=== PATIENT | male | born 1975 | race African-American/Black ===

== ENCOUNTER → 2016-08-01 | Outpatient (CLI) | payer SELFPAY ==
[2012-07-25 07:48] VITALS: BP 142/96
[2016-08-01 11:25] LABS: CREATININE,URINE 310.99 mg/dL (40-278); MICROALBUMIN,URINE 14.4 mg/L
[2016-08-01 11:50] LABS: CHOL/HDL RATIO 3.2 (0.0-5.0)
== END ==
LOC: LAB 10:37
PROVIDERS: ATTEND Nurse Practitioner Family
DX: E11.9 Type 2 diabetes mellitus without complications (principal); E78.4 Other hyperlipidemia
CPT/HCPCS: 36415; 80061; 82043; 83036

== ENCOUNTER 2017-03-08 12:44 | Inpatient (IN) | payer SELFPAY ==
[2017-03-08] MEDS ORDERED: NS 1000 ML 1,000 ML ONE ×3 (12:55→15:03)
[2017-03-08] MEDS ORDERED: NS 1000 ML 1,000 ML IV ONE ×2 (13:07→13:58)
[2017-03-08 13:12] LABS: ABG BASE EXCESS -16.7 mmol/L (-2.0-2.0)
[2017-03-08 13:13] LABS: ABG ALLEN TEST POS; ABG HCO3 9.9 mmol/L (22-26)
--- NOTE | 2017-03-08 13:13 | DR.GENAD ---
HPI - PCP Primary Care Physician: ROXANA LUNDBERG - HPI Comment HPI Comment: DIABETIC PATIENT OUT OF INSULIN FOR 2 WEEKS. PATIENT IS NOT HOLDING DOWN FOOD OR FLUID. HE IS WEAK AND DIZZY. - Complaint/Symptoms Chief Complaint Doctors Comments: N/V AND ABDOMINAL PAIN TIMES SEVERAL DAYS. Chief Complaint:: PT. C/O N/V/D, DIZZINESS. PT. HAS BEEN OUT OF HIS INSULIN X 2 WEEKS. BLOOD SUGAR AT HOME HAS BEEN READING HOME. - Nurses notes reviewed Nurses Notes Review: Yes - Source History Provided: Patient, Family Member - Mode of Arrival Mode of Arrival: Wheelchair - Timing Onset of Chief Complaint: 02/22/17 Came on: Suddenly - Duration Duration: Constant Duration: Days PMH - PMH Past Medical History: Yes Past Medical History: Diabetes, Dyslipidemia Past Surgical History: No Surgical History: No History - Family History History of Family Medical Conditions: Yes Family Medical History: Diabetes Mellitus - Social History Does patient currently use any type of tobacco product: No Have you used tobacco products in the last 12 months: No Type of Tobacco Use: None Does any household member use tobacco: No Alcohol Use: None Do you use any recreational Drugs:: No Lives With: Spouse Lives Where: Home - infectious screening In the last 2 months have you had wt loss of >10#?: NO Have you had fever, night sweats or hemotysis?: No Have you traveled outside the country in the last 6 months?: No Isolation: Standard ROS - Review of Systems Constitutional: Weakness, Fatigue, Loss of Appetite. negative: Chills, Fever Eyes: Blurred Vision. negative: Eye Pain, Discharge ENTM: No Symptoms Reported. negative: Ear Pain, Nose Discharge, Nose Congestion , Throat Pain Respiratoy: Short of Breath. negative: Productive Cough, Wheezing, Hemoptysis Cardiovascular: Chest Pain Gastrointestinal/Abdominal: Abdominal Pain, Nausea, Vomiting Genitourinary: Other (DECREASE URINE OUTPUT.). negative: Dysuria, Frequency, Hematuria Neurological: Weakness, Dizziness Musculoskeletal: Muscle Pain Integumentary: Dryness Hematologic/Lymphatic: No Symptoms Reported Endocrine: Flushing, Increased Thirst All Other Systems: Reviewed and Negative PE - Vital Signs Vitals: Temperature 99 F Pulse Rate 124 Respiratory Rate 28 Blood Pressure 118/66 O2 Sat by Pulse Oximetry 96 - General Limitations: No Limitations General Appearance: Alert - Head Head Exam: Normal Inspection - Eyes Eye exam: Normal Appearance - ENT ENT Exam: Normal External Ear Exam External Ear Exam: Normal External Inspection TM/Canal Exam: Bilateral Normal Nose Exam: Normal Nose Exam Mouth Exam: Normal Inspection Throat Exam: Normal Inspection - Neck Neck Exam: Trachea Midline - Chest Chest Inspection: Symmetric Chest Wall Rise - Respiratory Respiratory Exam: Normal Lung Sounds Bilat Respiratory Exam: Bilateral Clear to Auscultation - Cardiovascular Cardiovascular Exam: Regular Rate, Normal Rhythm, Normal Heart Sounds - Abdominal Exam Abdominal Exam: Normal Bowel Sounds, Soft, Tenderness Abdominal Tenderness: Diffuse, Moderate - Extremities Extremities Exam: Normal Inspection - Back Back Exam: Normal Inspection - Neurologic Neurological Exam: Alert, Oriented X3 - Psychiatric Psychiatric Exam: Anxious - Skin Skin Exam: Erythema MDM - Additional Information Additional Information Obtained From: Family - Differential Diagnosis Differential Diagnosis: DKA, DIABETIC GASTROPARESIS, BOWEL OBSTRUCTION, HYPERGLYCEMIA Course - Treatment Treatment: SEE ORDERS. - Consultation Consultation Comments: DISCUSS PATIENT WITH DR. SANDERSON. HE WILL ADMIT PATIENT. - Education/Counseling Education/Counseling: Patient, Family, Education Educated On: Diagnosis ROR - Labs Reviewed Laboratory Results Reviewed?: Yes Result Diagrams: 03/09/17 05:50 03/09/17 05:50 - XRAY XRAY Interpreted by: Radiologist XRAY Findings: REPORT DISCUSS WITH PATIENT AND FAMILY. - EKG Rhythm: NSR (EKG NOTED.) - Diagnosis Discharge Problem: DKA (diabetic ketoacidoses) Qualifiers: Diabetes mellitus type: type 1 Diabetes mellitus complication detail: without coma Qualified Code(s): E10.10 - Type 1 diabetes mellitus with ketoacidosis without coma Abdominal pain Qualifiers: Abdominal location: generalized Qualified Code(s): R10.84 - Generalized abdominal pain - Discharge Plan Disposition: ADMITTED INPATIENT Condition: Stable - Follow ups/Referrals - Instructions
[2017-03-08 13:18] LABS: BASOPHILS # (AUTO) 0.1 X10^3/uL (0.0-0.1); BASOPHILS % (AUTO) 0.2 % (0.2-1.0); HEMOGLOBIN 16.4 g/dL (13.5-18.0); LYMPHOCYTES # (AUTO) 2.4 X10^3/uL (1.3-2.9); LYMPHOCYTES % (AUTO) 9.1 % (21.0-51.0); MEAN CORPUSCULAR HEMOGLOBIN 25.7 pg (27.0-34.0); MEAN CORPUSCULAR HGB CONC 31.5 g/dL (33.0-35.0); MEAN CORPUSCULAR VOLUME 81.6 fL (80.0-100.0); MEAN PLATELET VOLUME 9.6 fL (7.4-11.0); MONOCYTES # (AUTO) 1.1 x10^3/uL (0.3-0.8); MONOCYTES % (AUTO) 4.1 % (0.0-13.0); NEUTROPHILS # (AUTO) 22.4 x10^3/uL (2.2-4.8); NEUTROPHILS % (AUTO) 86.6 % (42.0-75.0); PLATELET COUNT 379 X10^3/uL (150.0-450.0); RED BLOOD COUNT 6.37 X10^6/uL (4.7-6.0); RED CELL DISTRIBUTION WIDTH 13.3 % (11.6-16.5); WHITE BLOOD COUNT 25.9 X10^3/uL (3.6-10.0)
[2017-03-08 13:25] LABS: SERUM ACETONE LARGE (NEGATIVE)
[2017-03-08 13:34] LABS: BLOOD UREA NITROGEN 33 mg/dL (7-18); CALCIUM 10.4 mg/dL (8.5-10.1); CHLORIDE 86 mmol/L (98-107); CREATININE 2.36 mg/dL (0.70-1.30); SODIUM 130 mmol/L (136-145); eGFR BLACK RACES 39 (>60); eGFR NON BLACK RACES 32 (>60)
[2017-03-08 13:35] LABS: ALANINE AMINOTRANSFERASE 23 Units/L (12-78); ALBUMIN 4.5 g/dL (3.4-5.0); ALKALINE PHOSPHATASE 180 Units/L (46-116); ASPARTATE AMINO TRANSFERASE 11 Units/L (15-37); TOTAL PROTEIN 9.2 g/dL (6.4-8.2)
[2017-03-08 13:48] LABS: BAND NEUTROPHILS % 7 % (0-10)
[2017-03-08 13:49] LABS: PLATELET MORPHOLOGY COMMENT NORMAL (NORMAL)
[2017-03-08 13:55] LABS: COR NA(FOR HYPERGLY) 144 mmol/L (136-145)
[2017-03-08 14:19] LABS: BILIRUBIN,URINE NEGATIVE (NEGATIVE); BLOOD/HEMOGLOBIN,URINE NEGATIVE (NEGATIVE); GLUCOSE, URINE 4+ (NEGATIVE); KETONES,URINE 3+ (NEGATIVE); LEUKOCYTE ESTERASE ,URINE NEGATIVE (NEGATIVE); NITRITES,URINE NEGATIVE (NEGATIVE); PROTEIN,URINE NEGATIVE (NEGATIVE); UROBILINOGEN,URINE NORMAL (NORMAL)
[2017-03-08 14:21] LABS: APPEARANCE,URINE CLEAR (CLEAR); COLOR,URINE YELLOW (YELLOW)
[2017-03-08 14:25] LABS: BACTERIA,URINE NEGATIVE /HPF (NEGATIVE); RBC,URINE NEGATIVE /HPF (NEGATIVE); SQUAMOUS EPITHELIAL CELL,UR RARE /HPF (NEGATIVE)
[2017-03-08] MEDS ORDERED: ZOFRAN INJ 4 MG VIAL IVP ONE (15:02)
[2017-03-08] MEDS ORDERED: ZOFRAN INJ 4 MG VIAL ONE (15:02)
[2017-03-08] MEDS ORDERED: HumuLIN R ONE ×3 (15:06→15:13)
[2017-03-08] MEDS ORDERED: HumuLIN R IV ONE (15:09)
[2017-03-08] MEDS ORDERED: NS 100 ML IV 100 ML IV ONE (15:11)
[2017-03-08] MEDS ORDERED: NS + KCL 20 MEQ/L 1,000 ML IV ONE (15:43)
--- NOTE | 2017-03-08 15:47 | RAD ---
Examination: Portable AP chest History: Weakness, AMS Findings: Normal heart size with clear lungs and pleural spaces. Impression: No acute or significant chest findings. Reported By:
[2017-03-08 15:49] LABS: HEMOGLOBIN A1C 10.6 % (4.5-6.2)
[2017-03-08] MEDS ORDERED: MAGNESIUM SULFATE 1 GM/100 mL PREMIX 2 GM/200 ML BAG IV PRN (16:01)
[2017-03-08] MEDS ORDERED: MAGNESIUM SULFATE 1 GM/100 mL PREMIX 1 GM/100 ML BAG IV PRN (16:01)
[2017-03-08] MEDS ORDERED: SODIUM BICARBONATE 8.4% INJ ADULT IVP PRN (16:01)
[2017-03-08] MEDS ORDERED: D50W ABBOJECT SYR IV PRN (16:01)
[2017-03-08] MEDS ORDERED: NS + KCL 40 MEQ/L 1,000 ML IV PRN (16:01)
[2017-03-08] MEDS ORDERED: NS 1000 ML 1,000 ML IV PRN (16:01)
[2017-03-08 16:22] LABS: CALCIUM 9.2 mg/dL (8.5-10.1)
[2017-03-08 16:32] LABS: MAGNESIUM 2.8 mg/dL (1.7-2.9); PHOSPHORUS 6.5 mg/dL (2.6-4.7)
[2017-03-08 17:36] VITALS: BMI 25.0
[2017-03-08 18:48] LABS: CALCIUM 9.3 mg/dL (8.5-10.1); CARBON DIOXIDE 20.9 mmol/L (21-32); CREATININE 2.05 mg/dL (0.70-1.30)
[2017-03-08] MEDS: ZOFRAN INJ 4 MG VIAL IVP PRN (20:00)
[2017-03-08] MEDS: SNACK - Diabetic Appropriate PO SCH (20:16)
[2017-03-08] MEDS ORDERED: LIPITOR TAB 10 MG PO SCH (21:00)
[2017-03-08] MEDS ORDERED: TOUJEO SOLOSTAR PEN SC SCH (21:00)
[2017-03-08] MEDS: D5 1/2 NS + KCL 20 MEQ/L 1,000 ML IV PRN (22:14)
[2017-03-08] MEDS: NS 1000 ML 1,000 ML IV SCH (23:14)
[2017-03-08] MEDS: HumuLIN R IV PRN (23:42)
[2017-03-09] MEDS: D5 1/2 NS + KCL 20 MEQ/L 1,000 ML IV PRN ×4 (04:20→23:27)
[2017-03-09] MEDS: HumuLIN R IV PRN (05:00)
[2017-03-09] MEDS: NS 1000 ML 1,000 ML IV SCH ×4 (05:43→19:05)
[2017-03-09 06:03] LABS: ABG BASE EXCESS -1.1 mmol/L (-2.0-2.0); ABG HCO3 22.2 mmol/L (22-26)
[2017-03-09 06:16] LABS: BASOPHILS # (AUTO) 0.1 X10^3/uL (0.0-0.1); BASOPHILS % (AUTO) 0.4 % (0.2-1.0); EOSINOPHILS % (AUTO) 0.1 % (0.9-2.9); HEMATOCRIT 40.9 % (42.0-54.0); HEMOGLOBIN 13.5 g/dL (13.5-18.0); LYMPHOCYTES # (AUTO) 1.9 X10^3/uL (1.3-2.9); LYMPHOCYTES % (AUTO) 11.2 % (21.0-51.0); MEAN CORPUSCULAR HEMOGLOBIN 25.3 pg (27.0-34.0); MEAN CORPUSCULAR HGB CONC 33.1 g/dL (33.0-35.0); MEAN CORPUSCULAR VOLUME 76.4 fL (80.0-100.0); MEAN PLATELET VOLUME 8.8 fL (7.4-11.0); MONOCYTES # (AUTO) 1.2 x10^3/uL (0.3-0.8); MONOCYTES % (AUTO) 7.3 % (0.0-13.0); NEUTROPHILS # (AUTO) 13.6 x10^3/uL (2.2-4.8); PLATELET COUNT 283 X10^3/uL (150.0-450.0); RED BLOOD COUNT 5.35 X10^6/uL (4.7-6.0); RED CELL DISTRIBUTION WIDTH 13.2 % (11.6-16.5); WHITE BLOOD COUNT 16.8 X10^3/uL (3.6-10.0)
[2017-03-09 06:47] LABS: HYPOCHROMASIA SLIGHT; MICROCYTOSIS SLIGHT; PLATELET MORPHOLOGY COMMENT NORMAL (NORMAL)
[2017-03-09 06:51] LABS: ALANINE AMINOTRANSFERASE 20 Units/L (12-78); ALKALINE PHOSPHATASE 94 Units/L (46-116); ASPARTATE AMINO TRANSFERASE 12 Units/L (15-37); BLOOD UREA NITROGEN 21 mg/dL (7-18); CALCIUM 7.8 mg/dL (8.5-10.1); CARBON DIOXIDE 23.7 mmol/L (21-32); CHLORIDE 113 mmol/L (98-107); COR CA(FOR HYPOALB) 8.6 mg/dL (8.5-10.1); COR NA(FOR HYPERGLY) 148 mmol/L (136-145); CREATININE 1.17 mg/dL (0.70-1.30); SODIUM 146 mmol/L (136-145); TOTAL PROTEIN 6.2 g/dL (6.4-8.2); eGFR BLACK RACES > 60 (>60); eGFR NON BLACK RACES > 60 (>60)
[2017-03-09] MEDS ORDERED: MILK OF MAGNESIA PO PRN (07:30)
[2017-03-09] MEDS: COLACE CAP 100 MG PO SCH ×2 (10:25→20:47)
[2017-03-09] MEDS: GLUCOPHAGE XR PO SCH ×2 (10:43→20:47)
[2017-03-09] MEDS: ACTOS PO SCH (10:44)
[2017-03-09] MEDS: ZESTRIL TAB 10 MG PO SCH (10:45)
[2017-03-09] MEDS ORDERED: CHLORASEPTIC SPRAY MT PRN (14:19)
[2017-03-09] MEDS ORDERED: NORCO 5/325 MG TAB PO PRN (16:18)
[2017-03-09] MEDS: TYLENOL 325 MG TAB PO PRN (17:14)
[2017-03-09] MEDS: SNACK - Diabetic Appropriate PO SCH (20:38)
[2017-03-09] MEDS: HumuLIN R SUBCUT PRN (20:47)
[2017-03-09] MEDS: TOUJEO SOLOSTAR PEN SC SCH (20:47)
[2017-03-10] MEDS: NS 1000 ML 1,000 ML IV SCH ×4 (01:01→17:10)
[2017-03-10] MEDS: HumuLIN R SUBCUT PRN ×2 (05:50→20:44)
[2017-03-10 06:18] LABS: BASOPHILS # (AUTO) 0.1 X10^3/uL (0.0-0.1); BASOPHILS % (AUTO) 0.5 % (0.2-1.0); EOSINOPHILS # (AUTO) 0.1 x10^3/uL (0.0-0.2); EOSINOPHILS % (AUTO) 0.8 % (0.9-2.9); HEMATOCRIT 40.4 % (42.0-54.0); HEMOGLOBIN 13.6 g/dL (13.5-18.0); LYMPHOCYTES # (AUTO) 1.9 X10^3/uL (1.3-2.9); LYMPHOCYTES % (AUTO) 14.2 % (21.0-51.0); MEAN CORPUSCULAR HEMOGLOBIN 25.8 pg (27.0-34.0); MEAN CORPUSCULAR HGB CONC 33.8 g/dL (33.0-35.0); MEAN CORPUSCULAR VOLUME 76.3 fL (80.0-100.0); MEAN PLATELET VOLUME 9.2 fL (7.4-11.0); MONOCYTES # (AUTO) 1.2 x10^3/uL (0.3-0.8); MONOCYTES % (AUTO) 8.6 % (0.0-13.0); NEUTROPHILS # (AUTO) 10.1 x10^3/uL (2.2-4.8); NEUTROPHILS % (AUTO) 75.9 % (42.0-75.0); PLATELET COUNT 240 X10^3/uL (150.0-450.0); RED BLOOD COUNT 5.29 X10^6/uL (4.7-6.0); RED CELL DISTRIBUTION WIDTH 12.8 % (11.6-16.5); WHITE BLOOD COUNT 13.4 X10^3/uL (3.6-10.0)
[2017-03-10 06:23] LABS: ABG BASE EXCESS -0.4 mmol/L (-2.0-2.0); ABG HCO3 21.8 mmol/L (22-26)
[2017-03-10 06:56] LABS: ALANINE AMINOTRANSFERASE 22 Units/L (12-78); ALBUMIN 2.8 g/dL (3.4-5.0); ALKALINE PHOSPHATASE 103 Units/L (46-116); ASPARTATE AMINO TRANSFERASE 20 Units/L (15-37); BLOOD UREA NITROGEN 9 mg/dL (7-18); CALCIUM 7.2 mg/dL (8.5-10.1); CARBON DIOXIDE 23.2 mmol/L (21-32); CHLORIDE 106 mmol/L (98-107); COR CA(FOR HYPOALB) 8.2 mg/dL (8.5-10.1); COR NA(FOR HYPERGLY) 142 mmol/L (136-145); CREATININE 1.02 mg/dL (0.70-1.30); MAGNESIUM 1.7 mg/dL (1.7-2.9); PHOSPHORUS 1.4 mg/dL (2.6-4.7); SODIUM 138 mmol/L (136-145); TOTAL PROTEIN 6.1 g/dL (6.4-8.2); eGFR BLACK RACES > 60 (>60); eGFR NON BLACK RACES > 60 (>60)
[2017-03-10 07:18] LABS: PLATELET MORPHOLOGY COMMENT NORMAL (NORMAL)
[2017-03-10] MEDS: GLUCOPHAGE XR PO SCH ×2 (10:18→20:43)
[2017-03-10] MEDS: ACTOS PO SCH (10:19)
[2017-03-10] MEDS: ZESTRIL TAB 10 MG PO SCH (10:19)
[2017-03-10] MEDS: LEVAQUIN TAB 500 MG PO SCH (10:22)
[2017-03-10] MEDS: FLONASE NASAL SPRAY ENOSTRIL SCH (10:23)
[2017-03-10] MEDS: TYLENOL 325 MG TAB PO PRN (10:24)
--- NOTE | 2017-03-10 10:43 | CT ---
Examination: CT of the sinuses. Clinical history: Frontal headache. Technique: Multiple axial images were obtained to evaluate the sinuses. Coronal reformatted images we re obtained. Dose reduction techniques including automated exposure control (AEC) and adjustment of m A and kV were utilized. Comparison: None available. Findings: There is patchy opacification of the ethmoid air cells seen bilaterally, with mild mucosal thickening noted in the maxillary sinuses bilaterally and minimal mucosal thickening seen in the left frontal s inus and the left sphenoid sinus, consistent with inflammatory sinus disease. The remainder of the pa ranasal sinuses are clear. The nasal septum is minimally deviated to the left. The ostiomeatal units are patent bilaterally. A leslye bullosa is incidentally noted, associated with the right middle turbinate. Soft tissue is noted in the external auditory canals bilaterally, consistent with cerumen impaction. No additional bony or soft tissue abnormality is noted. Impression: 1. Inflammatory sinus disease, as described above. 2. Soft tissue is noted in the external auditory canals bilaterally, consistent with cerumen impactio n. Reported By:
[2017-03-10] MEDS: ZOFRAN INJ 4 MG VIAL IVP PRN (13:07)
[2017-03-10] MEDS: SNACK - Diabetic Appropriate PO SCH (20:27)
[2017-03-10] MEDS: COLACE CAP 100 MG PO SCH (20:43)
[2017-03-10] MEDS: TOUJEO SOLOSTAR PEN SC SCH (20:45)
[2017-03-11] MEDS: NS 1000 ML 1,000 ML IV SCH ×2 (01:05→08:10)
[2017-03-11 05:01] LABS: ABG ALLEN TEST POS; ABG BASE EXCESS 2.5 mmol/L (-2.0-2.0); ABG HCO3 26.3 mmol/L (22-26)
[2017-03-11 06:30] LABS: BASOPHILS # (AUTO) 0.1 X10^3/uL (0.0-0.1); BASOPHILS % (AUTO) 0.8 % (0.2-1.0); EOSINOPHILS # (AUTO) 0.1 x10^3/uL (0.0-0.2); EOSINOPHILS % (AUTO) 0.5 % (0.9-2.9); HEMATOCRIT 37.7 % (42.0-54.0); LYMPHOCYTES # (AUTO) 2.1 X10^3/uL (1.3-2.9); LYMPHOCYTES % (AUTO) 22.1 % (21.0-51.0); MEAN CORPUSCULAR HEMOGLOBIN 25.9 pg (27.0-34.0); MEAN CORPUSCULAR HGB CONC 34.4 g/dL (33.0-35.0); MEAN CORPUSCULAR VOLUME 75.2 fL (80.0-100.0); MEAN PLATELET VOLUME 9.3 fL (7.4-11.0); MONOCYTES # (AUTO) 0.7 x10^3/uL (0.3-0.8); MONOCYTES % (AUTO) 7.3 % (0.0-13.0); NEUTROPHILS # (AUTO) 6.5 x10^3/uL (2.2-4.8); NEUTROPHILS % (AUTO) 69.3 % (42.0-75.0); PLATELET COUNT 177 X10^3/uL (150.0-450.0); RED BLOOD COUNT 5.01 X10^6/uL (4.7-6.0); WHITE BLOOD COUNT 9.4 X10^3/uL (3.6-10.0)
[2017-03-11 06:41] LABS: ALANINE AMINOTRANSFERASE 20 Units/L (12-78); ALBUMIN 2.4 g/dL (3.4-5.0); ALKALINE PHOSPHATASE 83 Units/L (46-116); ASPARTATE AMINO TRANSFERASE 15 Units/L (15-37); BLOOD UREA NITROGEN 7 mg/dL (7-18); CALCIUM 7.1 mg/dL (8.5-10.1); CARBON DIOXIDE 24.6 mmol/L (21-32); CHLORIDE 110 mmol/L (98-107); COR CA(FOR HYPOALB) 8.4 mg/dL (8.5-10.1); CREATININE 1.05 mg/dL (0.70-1.30); SODIUM 143 mmol/L (136-145); TOTAL PROTEIN 5.5 g/dL (6.4-8.2); eGFR BLACK RACES > 60 (>60); eGFR NON BLACK RACES > 60 (>60)
[2017-03-11 07:03] LABS: PLATELET MORPHOLOGY COMMENT NORMAL (NORMAL)
[2017-03-11] MEDS: ZESTRIL TAB 10 MG PO SCH (08:11)
[2017-03-11] MEDS: FLONASE NASAL SPRAY ENOSTRIL SCH (08:11)
[2017-03-11] MEDS: LEVAQUIN TAB 500 MG PO SCH (08:11)
[2017-03-11] MEDS: ACTOS PO SCH (08:11)
[2017-03-11] MEDS: GLUCOPHAGE XR PO SCH (08:12)
[2017-03-11] MEDS ORDERED: K-DUR TAB 20 MEQ PO ONE (10:00)
[2017-03-11] MEDS: TYLENOL 325 MG TAB PO PRN (11:58)
[2017-03-11 12:09] VITALS: BP 153/89
== END 2017-03-11 15:45 | disposition home or self-care (01) | DRG 639 ==
LOC: ER 12:51 → ICU 16:17
PROVIDERS: ADMIT Obstetrics & Gynecology Obstetrics; ATTEND Obstetrics & Gynecology Obstetrics
DX: E11.10 Type 2 diabetes mellitus with ketoacidosis without coma (principal); R10.84 Generalized abdominal pain; R11.2 Nausea with vomiting, unspecified; R42 Dizziness and giddiness; E78.2 Mixed hyperlipidemia; R51 Headache; R94.31 Abnormal electrocardiogram [ECG] [EKG]; E87.6 Hypokalemia; E83.42 Hypomagnesemia; J01.80 Other acute sinusitis
CPT/HCPCS: 36415; 36600; 70486; 71045; 80048; 80053; 81001; 81002; 82009; 82150; 82310; 82803; 82947; 83036; 83690; 83735; 84100; 84681; 85025; 86140; 87040; 93005; 93010; 96365; 96367; 96374; 96375; 99284; 99285; A4222; J1815; J2405

== ENCOUNTER → 2017-03-27 | Outpatient (CLI) | payer SELFPAY ==
[2017-03-11 12:09] VITALS: BP 153/89
[2017-03-27 09:00] LABS: BASOPHILS # (AUTO) 0.1 X10^3/uL (0.0-0.1); BASOPHILS % (AUTO) 0.8 % (0.2-1.0); EOSINOPHILS # (AUTO) 0.1 x10^3/uL (0.0-0.2); EOSINOPHILS % (AUTO) 0.9 % (0.9-2.9); HEMATOCRIT 43.5 % (42.0-54.0); HEMOGLOBIN 14.6 g/dL (13.5-18.0); LYMPHOCYTES # (AUTO) 2.5 X10^3/uL (1.3-2.9); LYMPHOCYTES % (AUTO) 38.6 % (21.0-51.0); MEAN CORPUSCULAR HEMOGLOBIN 25.7 pg (27.0-34.0); MEAN CORPUSCULAR HGB CONC 33.5 g/dL (33.0-35.0); MEAN CORPUSCULAR VOLUME 76.6 fL (80.0-100.0); MONOCYTES # (AUTO) 0.6 x10^3/uL (0.3-0.8); MONOCYTES % (AUTO) 8.8 % (0.0-13.0); NEUTROPHILS # (AUTO) 3.2 x10^3/uL (2.2-4.8); NEUTROPHILS % (AUTO) 50.9 % (42.0-75.0); PLATELET COUNT 260 X10^3/uL (150.0-450.0); RED BLOOD COUNT 5.68 X10^6/uL (4.7-6.0); RED CELL DISTRIBUTION WIDTH 12.9 % (11.6-16.5); WHITE BLOOD COUNT 6.3 X10^3/uL (3.6-10.0)
[2017-03-27 09:08] LABS: HEMOGLOBIN A1C 11.5 %
[2017-03-27 09:10] LABS: ALANINE AMINOTRANSFERASE 36 Units/L (12-78); ALBUMIN 3.8 g/dL (3.4-5.0); ALKALINE PHOSPHATASE 155 Units/L (46-116); ASPARTATE AMINO TRANSFERASE 22 Units/L (15-37); BLOOD UREA NITROGEN 14 mg/dL (7-18); CALCIUM 8.5 mg/dL (8.5-10.1); CARBON DIOXIDE 31.4 mmol/L (21-32); CHLORIDE 98 mmol/L (98-107); CHOL/HDL RATIO 3.5 (0.0-5.0); CHOLESTEROL 197 mg/dL (0-200); COR NA(FOR HYPERGLY) 141 mmol/L (136-145); CREATININE 1.18 mg/dL (0.70-1.30); HDL CHOLESTEROL 57 mg/dL (40-60); MAGNESIUM 1.9 mg/dL (1.7-2.9); SODIUM 136 mmol/L (136-145); TOTAL PROTEIN 7.8 g/dL (6.4-8.2); TRIGLYCERIDES 74 mg/dL (0-150); eGFR BLACK RACES > 60 (>60); eGFR NON BLACK RACES > 60 (>60)
[2017-03-27 09:33] LABS: PLATELET MORPHOLOGY COMMENT NORMAL (NORMAL)
[2017-03-27 09:39] LABS: CREATININE,URINE 124.91 mg/dL (40-278); MICROALBUMIN,URINE 21.8 mg/L
== END ==
LOC: LAB 08:27
PROVIDERS: ATTEND Psychiatry & Neurology Neurology
DX: E83.42 Hypomagnesemia (principal); E11.9 Type 2 diabetes mellitus without complications; E78.4 Other hyperlipidemia
CPT/HCPCS: 36415; 80053; 80061; 82043; 83036; 83735; 85025

== ENCOUNTER 2022-12-19 19:37 | Inpatient (IN) ==
--- NOTE | 2022-12-19 21:45 | DR.CP ---
HPI Time Seen Time Seen by Provider: 12/19/22 21:41 PCP Primary Care Physician: Mervin Complaint Chief Complaint:: c/o cough x1 week - now having some back/chest pain Self Treatment fo Chief Complaint: OTC cough meds Source History Provided: Patient Mode of Arrival Mode of Arrival: Ambulatory Timing Onset of Chief Complaint: 12/12/22 PMH PMH Past Medical History: Yes Past Medical History: Diabetes and Dyslipidemia Past Surgical History: Yes Surgical History: Other Past Surgical History Comment: Hernia repair Family History History of Family Medical Conditions: Yes Family Medical History: Diabetes Mellitus Social History Alcohol Use: None Do you use any recreational Drugs:: No Lives With: Spouse Lives Where: Home Infectious screening Have you traveled outside the country in the last 6 months?: No Isolation: Standard PE Vitals Vitals: Vital Signs Temperature 100.2 F Pulse Rate 102 Pulse Rate 104 Pulse Rate 103 Pulse Rate 120 Pulse Rate 101 Pulse Rate 105 Pulse Rate 109 Pulse Rate 118 Pulse Rate 108 Pulse Rate 109 Pulse Rate 118 Pulse Rate 124 Pulse Rate 120 Respiratory Rate 23 Respiratory Rate 29 Respiratory Rate 20 Respiratory Rate 48 Respiratory Rate 23 Respiratory Rate 27 Respiratory Rate 27 Respiratory Rate 30 Respiratory Rate 48 Respiratory Rate 31 Respiratory Rate 28 Respiratory Rate 47 Respiratory Rate 48 Respiratory Rate 22 Blood Pressure 174/84 Blood Pressure 162/76 Blood Pressure 153/77 Blood Pressure 172/95 Blood Pressure 181/105 Blood Pressure 172/98 O2 Sat by Pulse Oximetry 96 O2 Sat by Pulse Oximetry 97 O2 Sat by Pulse Oximetry 96 O2 Sat by Pulse Oximetry 96 O2 Sat by Pulse Oximetry 95 O2 Sat by Pulse Oximetry 92 O2 Sat by Pulse Oximetry 96 O2 Sat by Pulse Oximetry 97 O2 Sat by Pulse Oximetry 96 O2 Sat by Pulse Oximetry 96 ROR Labs Reviewed 12/19/22 21:55 12/19/22 21:55 Laboratory: WBC 18.6 X10^3/uL (3.6-10.0) H 12/19/22 21:55 RBC 5.70 X10^6/uL (4.7-6.0) 12/19/22 21:55 Hgb 14.6 g/dL (13.5-18.0) 12/19/22 21:55 Hct 44.4 % (42.0-54.0) 12/19/22 21:55 MCV 77.9 fL (80.0-100.0) L 12/19/22 21:55 MCH 25.6 pg (27.0-34.0) L 12/19/22 21:55 MCHC 32.8 g/dL (33.0-35.0) L 12/19/22 21:55 RDW 13.2 % (11.6-16.5) 12/19/22 21:55 Plt Count 547 X10^3/uL (150.0-450.0) H 12/19/22 21:55 MPV 7.1 fL (7.4-11.0) L 12/19/22 21:55 Neut % (Auto) 86.3 % (42.0-75.0) H 12/19/22 21:55 Lymph % (Auto) 6.3 % (21.0-51.0) L 12/19/22 21:55 [place] % (Auto) 6.6 % (0.0-13.0) 12/19/22 21:55 Eos % (Auto) 0.2 % (0.9-2.9) L 12/19/22 21:55 Baso % (Auto) 0.6 % (0.2-1.0) 12/19/22 21:55 Neut # (Auto) 16.0 x10^3/uL (2.2-4.8) H 12/19/22 21:55 Lymph # (Auto) 1.2 X10^3/uL (1.3-2.9) L 12/19/22 21:55 [place] # (Auto) 1.2 x10^3/uL (0.3-0.8) H 12/19/22 21:55 Eos # (Auto) 0.0 x10^3/uL (0.0-0.2) 12/19/22 21:55 Baso # (Auto) 0.1 X10^3/uL (0.0-0.1) 12/19/22 21:55 Absolute Nucleated RBC 0.0 /100WBC 12/19/22 21:55 Sample Site Rr 12/19/22 23: ABG pH 7.500 (7.35-7.45) H 12/19/22 23:29 ABG pCO2 36.0 mmHg (35.0-45.0) 12/19/22 23:29 ABG pO2 67.0 mmHg (80.0-100.0) L 12/19/22 23:29 ABG HCO3 28.1 mmol/L (22-26) H 12/19/22 23:29 ABG O2 Saturation 95.0 % (90-100) 12/19/22 23:29 ABG Base Excess 4.8 mmol/L (-2.0-2.0) H 12/19/22 23:29 Johnathan Test Pos 12/19/22 23: A-a Gradient 38.0 mmHg 12/19/22 23:29 FiO2 21.0 12/19/22 23:29 Blood Gas Comments Giacomo well sw 12/19/22 23:29 Sodium 134 mmol/L (136-145) L 12/19/22 21:55 Corrected Sodium 138 mmol/L (136-145) 12/19/22 21:55 Potassium 3.7 mmol/L (3.5-5.1) 12/19/22 21:55 Chloride 97 mmol/L (98-107) L 12/19/22 21:55 Carbon Dioxide 25.2 mmol/L (21-32) 12/19/22 21:55 BUN 13 mg/dL (7-18) 12/19/22 21:55 Creatinine 1.37 mg/dL (0.70-1.30) H 12/19/22 21:55 Est GFR (MDRD) Af Amer > 60 (>60) 12/19/22 21:55 Est GFR (MDRD) Non-Af 59 (>60) 12/19/22 21:55 Glucose 260 mg/dL (65-99) H 12/19/22 21:55 Lactic Acid 1.6 mmol/L (0.4-2.0) 12/19/22 23:45 Calcium 8.9 mg/dL (8.5-10.1) 12/19/22 21:55 Corrected Calcium 9.9 mg/dL (8.5-10.1) 12/19/22 21:55 Total Bilirubin 0.40 mg/dL (0.2-1.0) 12/19/22 21:55 AST 11 Units/L (15-37) L 12/19/22 21:55 ALT 18 Units/L (12-78) 12/19/22 21:55 Alkaline Phosphatase 162 Units/L (46-116) H 12/19/22 21:55 Creatine Kinase 76 Units/L (39-308) 12/19/22 21:55 Troponin I High Sens 4.1 ng/L (4.0-60.0) 12/19/22 21:55 Total Protein 8.5 g/dL (6.4-8.2) H 12/19/22 21:55 Albumin 2.8 g/dL (3.4-5.0) L 12/19/22 21:55 Globulin 5.7 g/dL (2.5-4.5) H 12/19/22 21:55 Albumin/Globulin Ratio 0.5 Ratio (1.1-2.1) L 12/19/22 21:55 Specimen Type Clean catch urine 12/19/22 21:55 Urine Color Yellow (YELLOW) 12/19/22 21:55 Urine Appearance Clear (CLEAR) 12/19/22 21:55 Urine pH 5.0 (5.0 - 8.0) 12/19/22 21:55 Ur Specific [place] 1.005 (1.000-1.030) 12/19/22 21:55 Urine Protein 2+ (NEGATIVE) 12/19/22 21:55 Urine Glucose (UA) 4+ (NEGATIVE) 12/19/22 21:55 Urine Ketones 3+ (NEGATIVE) 12/19/22 21:55 Urine Blood 1+ (NEGATIVE) 12/19/22 21:55 Urine Nitrite Negative (NEGATIVE) 12/19/22 21:55 Urine Bilirubin Negative (NEGATIVE) 12/19/22 21:55 Urine Urobilinogen Normal (NORMAL) 12/19/22 21:55 Ur Leukocyte Esterase Negative (NEGATIVE) 12/19/22 21:55 Urine RBC 0-2 /HPF (0-3) 12/19/22 21:55 Urine WBC None seen /HPF (0-5) 12/19/22 21:55 Ur Squamous Epith Cells Rare /HPF (NEGATIVE) 12/19/22 21:55 Urine Bacteria Negative /HPF (NEGATIVE) 12/19/22 21:55 Urine Mucus Few /HPF (NEGATIVE) 12/19/22 21:55 Ur Culture Indicated? No/not indicated 12/19/22 21:55 Acetone, Semi-Quant Small (NEGATIVE) H 12/19/22 21:55 SARS-CoV-2 (PCR) Negative (NEGATIVE) 12/19/22 21:59 Influenza Type A (PCR) Negative (NEGATIVE) 12/19/22 21:59 Influenza Type B (PCR) Negative (NEGATIVE) 12/19/22 21:59 RSV (PCR) Negative (NEGATIVE) 12/19/22 21:59 Opioid Opioid Risk Tool Total: 0 Total Score Risk Category: Low Risk Copyright: Stanley predicting aberrant behaviors Discharge Plan Diagnosis Discharge Problem: Pneumonia, Hyperglycemia, Generalized weakness Discharge Plan Patient Disposition: 01 HOME, SELF-CARE Condition: Stable Orders to Discharge Patient Discharge Orders: Transfer (Routine); Ordered 12/20/22 Ordered By: BARBARA SOSA
[2022-12-19 22:05] LABS: BASOPHILS # (AUTO) 0.1 X10^3/uL (0.0-0.1); BASOPHILS % (AUTO) 0.6 % (0.2-1.0); EOSINOPHILS % (AUTO) 0.2 % (0.9-2.9); HEMATOCRIT 44.4 % (42.0-54.0); HEMOGLOBIN 14.6 g/dL (13.5-18.0); LYMPHOCYTES # (AUTO) 1.2 X10^3/uL (1.3-2.9); LYMPHOCYTES % (AUTO) 6.3 % (21.0-51.0); MEAN CORPUSCULAR HEMOGLOBIN 25.6 pg (27.0-34.0); MEAN CORPUSCULAR HGB CONC 32.8 g/dL (33.0-35.0); MEAN CORPUSCULAR VOLUME 77.9 fL (80.0-100.0); MEAN PLATELET VOLUME 7.1 fL (7.4-11.0); MONOCYTES # (AUTO) 1.2 x10^3/uL (0.3-0.8); MONOCYTES % (AUTO) 6.6 % (0.0-13.0); NEUTROPHILS % (AUTO) 86.3 % (42.0-75.0); PLATELET COUNT 547 X10^3/uL (150.0-450.0); RED CELL DISTRIBUTION WIDTH 13.2 % (11.6-16.5); WHITE BLOOD COUNT 18.6 X10^3/uL (3.6-10.0)
[2022-12-19 22:06] LABS: BILIRUBIN,URINE NEGATIVE (NEGATIVE); BLOOD/HEMOGLOBIN,URINE 1+ (NEGATIVE); GLUCOSE, URINE 4+ (NEGATIVE); KETONES,URINE 3+ (NEGATIVE); LEUKOCYTE ESTERASE ,URINE NEGATIVE (NEGATIVE); NITRITES,URINE NEGATIVE (NEGATIVE); PROTEIN,URINE 2+ (NEGATIVE); UROBILINOGEN,URINE NORMAL (NORMAL)
[2022-12-19 22:14] LABS: APPEARANCE,URINE CLEAR (CLEAR); COLOR,URINE YELLOW (YELLOW)
[2022-12-19 22:15] LABS: BACTERIA,URINE NEGATIVE /HPF (NEGATIVE); RBC,URINE 0-2 /HPF (0-3); SQUAMOUS EPITHELIAL CELL,UR RARE /HPF (NEGATIVE)
[2022-12-19 22:19] LABS: ALANINE AMINOTRANSFERASE 18 Units/L (12-78); ALBUMIN 2.8 g/dL (3.4-5.0); ALKALINE PHOSPHATASE 162 Units/L (46-116); ASPARTATE AMINO TRANSFERASE 11 Units/L (15-37); BLOOD UREA NITROGEN 13 mg/dL (7-18); CALCIUM 8.9 mg/dL (8.5-10.1); CARBON DIOXIDE 25.2 mmol/L (21-32); CHLORIDE 97 mmol/L (98-107); COR CA(FOR HYPOALB) 9.9 mg/dL (8.5-10.1); COR NA(FOR HYPERGLY) 138 mmol/L (136-145); CREATINE KINASE 76 Units/L (39-308); CREATININE 1.37 mg/dL (0.70-1.30); GLUCOSE 260 mg/dL (65-99); POTASSIUM 3.7 mmol/L (3.5-5.1); SODIUM 134 mmol/L (136-145); TOTAL PROTEIN 8.5 g/dL (6.4-8.2); eGFR NON BLACK RACES 59 (>60)
[2022-12-19] MEDS ORDERED: TORADOL 60 MG VIAL IM ONE (22:32)
[2022-12-19] MEDS ORDERED: TORADOL 60 MG VIAL ONE (22:38)
[2022-12-19] MEDS ORDERED: ROCEPHIN VIAL 1 GRAM 1 G in NS 100 ML IV 100 ML IV ONE (23:31)
[2022-12-19] MEDS ORDERED: NS 1,000 ML IV 1,000 ML IV SCH (23:45)
[2022-12-19 23:46] LABS: ABG ALLEN TEST POS; ABG BASE EXCESS 4.8 mmol/L (-2.0-2.0); ABG HCO3 28.1 mmol/L (22-26)
[2022-12-19] MEDS ORDERED: ROCEPHIN VIAL 1 GRAM ONE (23:47)
[2022-12-19] MEDS ORDERED: NS 1,000 ML IV 1,000 ML ONE (23:48)
[2022-12-20] MEDS: TUSSIONEX PENNKINETIC SUSP PO PRN ×2 (02:10→11:48)
[2022-12-20] MEDS: ZITHROMAX INJ 500 MG VIAL 500 MG in D5W 250 ML IV 250 ML IV SCH (02:11)
[2022-12-20 05:10] LABS: BASOPHILS # (AUTO) 0.1 X10^3/uL (0.0-0.1); BASOPHILS % (AUTO) 0.7 % (0.2-1.0); EOSINOPHILS # (AUTO) 0.1 x10^3/uL (0.0-0.2); EOSINOPHILS % (AUTO) 0.7 % (0.9-2.9); HEMATOCRIT 37.6 % (42.0-54.0); LYMPHOCYTES # (AUTO) 1.5 X10^3/uL (1.3-2.9); LYMPHOCYTES % (AUTO) 11.3 % (21.0-51.0); MEAN CORPUSCULAR HEMOGLOBIN 25.2 pg (27.0-34.0); MEAN CORPUSCULAR HGB CONC 32.6 g/dL (33.0-35.0); MEAN CORPUSCULAR VOLUME 77.3 fL (80.0-100.0); MEAN PLATELET VOLUME 7.1 fL (7.4-11.0); MONOCYTES # (AUTO) 1.4 x10^3/uL (0.3-0.8); MONOCYTES % (AUTO) 10.3 % (0.0-13.0); NEUTROPHILS # (AUTO) 10.3 x10^3/uL (2.2-4.8); PLATELET COUNT 426 X10^3/uL (150.0-450.0); RED BLOOD COUNT 4.86 X10^6/uL (4.7-6.0); WHITE BLOOD COUNT 13.3 X10^3/uL (3.6-10.0)
[2022-12-20] MEDS: NS 1,000 ML IV 1,000 ML IV SCH ×3 (05:15→22:39)
[2022-12-20 05:17] LABS: ALANINE AMINOTRANSFERASE 14 Units/L (12-78); ALBUMIN 2.1 g/dL (3.4-5.0); ALKALINE PHOSPHATASE 119 Units/L (46-116); ASPARTATE AMINO TRANSFERASE 11 Units/L (15-37); BLOOD UREA NITROGEN 14 mg/dL (7-18); CALCIUM 7.6 mg/dL (8.5-10.1); CARBON DIOXIDE 31.1 mmol/L (21-32); CHLORIDE 102 mmol/L (98-107); COR CA(FOR HYPOALB) 9.1 mg/dL (8.5-10.1); COR NA(FOR HYPERGLY) 140 mmol/L (136-145); CREATININE 1.24 mg/dL (0.70-1.30); GLUCOSE 232 mg/dL (65-99); POTASSIUM 3.4 mmol/L (3.5-5.1); SODIUM 137 mmol/L (136-145); TOTAL PROTEIN 6.6 g/dL (6.4-8.2); eGFR NON BLACK RACES > 60 (>60)
[2022-12-20 05:27] LABS: HEMOGLOBIN 12.2 g/dL (13.5-18.0)
[2022-12-20] MEDS: NovoLIN R (or HumuLIN R) SC PRN ×2 (05:30→11:10)
[2022-12-20] MEDS ORDERED: CONSULT PHARMACY - POTASSIUM & MAGNESIUM XX SCH (07:00)
[2022-12-20] MEDS: DUONEB 0.5 MG/3 MG (3 mL) NEB SCH ×4 (08:38→20:48)
[2022-12-20] MEDS: ROBITUSSIN DM PO SCH ×4 (08:47→21:34)
[2022-12-20] MEDS: VSL#3 PO SCH (08:48)
[2022-12-20] MEDS ORDERED: K-DUR TAB 20 MEQ PO SCH (09:00)
[2022-12-20] MEDS: ZOFRAN INJ 4 MG VIAL IVP PRN ×2 (09:24→21:31)
--- NOTE | 2022-12-20 17:06 | RAD ---
EXAM:CHEST, 1 VIEWHISTORY:COUGH, CHEST PAIN; PT C/O COUGH X1 WEEK - NOW HAVING SOME BACK/CHEST PAINCOMPARISON:None.FINDINGS:Heart: Borderline heart size.Lungs: Moderate left-sided effusion with associated compressive atelectasis consolidation or aspiration.Bones: the bony thorax appears age appropriate.IMPRESSION:1. Borderline heart size.2. Moderate left-sided effusion with associated compressive atelectasis consolidation or aspiration.THIS IS AN ELECTRONICALLY VERIFIED FINAL [id number]/20/2022 5:02 PM - Electronically signed by Shaggy Mills DO
[2022-12-20] MEDS: ROCEPHIN VIAL 1 GRAM 1 G in NS 100 ML IV 100 ML IV SCH (21:32)
[2022-12-20] MEDS: TYLENOL 325 MG TAB PO PRN (21:33)
[2022-12-21 04:53] LABS: BASOPHILS # (AUTO) 0.1 X10^3/uL (0.0-0.1); BASOPHILS % (AUTO) 0.6 % (0.2-1.0); EOSINOPHILS # (AUTO) 0.2 x10^3/uL (0.0-0.2); EOSINOPHILS % (AUTO) 1.8 % (0.9-2.9); HEMATOCRIT 39.4 % (42.0-54.0); HEMOGLOBIN 12.8 g/dL (13.5-18.0); LYMPHOCYTES # (AUTO) 1.6 X10^3/uL (1.3-2.9); LYMPHOCYTES % (AUTO) 14.1 % (21.0-51.0); MEAN CORPUSCULAR HEMOGLOBIN 25.4 pg (27.0-34.0); MEAN CORPUSCULAR HGB CONC 32.4 g/dL (33.0-35.0); MEAN CORPUSCULAR VOLUME 78.5 fL (80.0-100.0); MEAN PLATELET VOLUME 7.5 fL (7.4-11.0); MONOCYTES # (AUTO) 1.2 x10^3/uL (0.3-0.8); MONOCYTES % (AUTO) 10.9 % (0.0-13.0); NEUTROPHILS # (AUTO) 8.1 x10^3/uL (2.2-4.8); NEUTROPHILS % (AUTO) 72.6 % (42.0-75.0); PLATELET COUNT 476 X10^3/uL (150.0-450.0); RED BLOOD COUNT 5.02 X10^6/uL (4.7-6.0); RED CELL DISTRIBUTION WIDTH 12.9 % (11.6-16.5); WHITE BLOOD COUNT 11.2 X10^3/uL (3.6-10.0)
[2022-12-21 04:59] LABS: ALANINE AMINOTRANSFERASE 12 Units/L (12-78); ALKALINE PHOSPHATASE 118 Units/L (46-116); ASPARTATE AMINO TRANSFERASE 10 Units/L (15-37); BLOOD UREA NITROGEN 10 mg/dL (7-18); CALCIUM 7.4 mg/dL (8.5-10.1); CARBON DIOXIDE 27.5 mmol/L (21-32); CHLORIDE 105 mmol/L (98-107); CREATININE 0.94 mg/dL (0.70-1.30); GLUCOSE 87 mg/dL (65-99); POTASSIUM 3.6 mmol/L (3.5-5.1); SODIUM 139 mmol/L (136-145); TOTAL PROTEIN 6.6 g/dL (6.4-8.2); eGFR NON BLACK RACES > 60 (>60)
[2022-12-21] MEDS: NS 1,000 ML IV 1,000 ML IV SCH ×3 (05:21→20:47)
--- NOTE | 2022-12-21 06:03 | DR.H&P ---
H&P History & Physical for Day of: H&P Date: 12/20/22 Chief Complaint Chief Complaint: Cough, Shortness of breath generalized weakness Allergies Allergies Allergy/AdvReac Type Severity Reaction Status Date / Time bacitracin Allergy Mild RASH Verified 12/20/22 00:17 [From Neosporin ([id number])] neomycin Allergy Mild RASH Verified 12/20/22 00:17 [From Neosporin ([id number])] polymyxin B Allergy Mild RASH Verified 12/20/22 00:17 [From Neosporin ([id number])] History of Present Illness History of Present Illness: Patient is a 47-year-old male with a past medical history of hypertension, diabetes melitis, hyperlipidemia, presenting with cough, shortness of breath, generalized weakness for the past few days. He re ports his symptoms have been gradually worsening. Labs/imaging: WBC 18.6>13.3, hemoglobin 12.2, platelets 426, sodium 137, potassium 3.4, creatinine 1.24, glucose 232, ABG: pH 7.5, pCO2 36, pO2 67, HCO3 28, O2sat 95% on RA. UA negative, AIT pending, blood cultures pending, RSV/COVID/flu negative, chest x- ray was obtained that revealed: 1.Borderline heart size. 2. Moderate left-sided effusion with associated compressive atelectasis consolidation or aspiration. Patient was admitted for pneumonia. We will start on antibiotics Rocephin and azithromycin. Continue IV fluids normal saline at 125 mL/h. Restart home medications. Continue to closely monitor and follow-up labs/imaging. Past Medical History Past Medical History: Diabetes and Dyslipidemia Past Surgical History Surgical History: Other Family History Family Medical History: Diabetes Mellitus and Cancer Social History Does patient currently use any type of tobacco product: No Have you used tobacco products in the last 12 months: No Type of Tobacco Use: None Does any household member use tobacco: No Alcohol Use: None Drug Use: None Medications Home Medications: Home Medications Medication Instructions Recorded Confirmed Type aspirin 81 mg tablet,delayed 81 mg PO HS 03/08/17 12/20/22 History release (Aspir-Low) insulin glargine U-300 conc 300 70 unit subcut HS diabetes 03/30/22 12/20/22 History unit/mL (3 mL) subcutaneous pen (Toujeo Max U-300 SoloSthi) loratadine 10 mg tablet 10 mg PO HS 12/20/22 12/20/22 History losartan 50 mg tablet 50 mg PO HS Diabetes & renal 12/20/22 12/20/22 History protection & HTN lovastatin 40 mg tablet 20 mg PO HS Diabetes, dyslipidemia 12/20/22 12/20/22 History sennosides 8.6 mg-docusate sodium 1 tab-cap PO BID 12/20/22 12/20/22 History 50 mg capsule (Stool Softener-Stimulant Laxative) Labs 12/21/22 04:03 12/21/22 04:03 Labs: Laboratory WBC 13.3 X10^3/uL (3.6-10.0) H 12/20/22 04:45 RBC 4.86 X10^6/uL (4.7-6.0) 12/20/22 04:45 Hgb 12.2 g/dL (13.5-18.0) L D 12/20/22 04:45 Hct 37.6 % (42.0-54.0) L 12/20/22 04:45 MCV 77.3 fL (80.0-100.0) L 12/20/22 04:45 MCH 25.2 pg (27.0-34.0) L 12/20/22 04:45 MCHC 32.6 g/dL (33.0-35.0) L 12/20/22 04:45 RDW 13.0 % (11.6-16.5) 12/20/22 04:45 Plt Count 426 X10^3/uL (150.0-450.0) 12/20/22 04:45 MPV 7.1 fL (7.4-11.0) L 12/20/22 04:45 Neut % (Auto) 77.0 % (42.0-75.0) H 12/20/22 04:45 Lymph % (Auto) 11.3 % (21.0-51.0) L 12/20/22 04:45 Jay % (Auto) 10.3 % (0.0-13.0) 12/20/22 04:45 Eos % (Auto) 0.7 % (0.9-2.9) L 12/20/22 04:45 Baso % (Auto) 0.7 % (0.2-1.0) 12/20/22 04:45 Neut # (Auto) 10.3 x10^3/uL (2.2-4.8) H 12/20/22 04:45 Lymph # (Auto) 1.5 X10^3/uL (1.3-2.9) 12/20/22 04:45 Jay # (Auto) 1.4 x10^3/uL (0.3-0.8) H 12/20/22 04:45 Eos # (Auto) 0.1 x10^3/uL (0.0-0.2) 12/20/22 04:45 Baso # (Auto) 0.1 X10^3/uL (0.0-0.1) 12/20/22 04:45 Absolute Nucleated RBC 0.0 /100WBC 12/20/22 04:45 Sample Site Rr 12/19/22 23:29 ABG pH 7.500 (7.35-7.45) H 12/19/22 23:29 ABG pCO2 36.0 mmHg (35.0-45.0) 12/19/22 23:29 ABG pO2 67.0 mmHg (80.0-100.0) L 12/19/22 23: ABG HCO3 28.1 mmol/L (22-26) H 12/19/22 23: ABG O2 Saturation 95.0 % (90-100) 12/19/22 23: ABG Base Excess 4.8 mmol/L (-2.0-2.0) H 12/19/22 23:29 Johnathan Test Pos 12/19/22 23:29 A-a Gradient 38.0 mmHg 12/19/22 23:29 FiO2 21.0 12/19/22 23:29 Blood Gas Comments Giacomo well sw 12/19/22 23:29 Sodium 137 mmol/L (136-145) 12/20/22 04:45 Corrected Sodium 140 mmol/L (136-145) 12/20/22 04:45 Potassium 3.4 mmol/L (3.5-5.1) L 12/20/22 04:45 Chloride 102 mmol/L (98-107) 12/20/22 04:45 Carbon Dioxide 31.1 mmol/L (21-32) 12/20/22 04:45 BUN 14 mg/dL (7-18) 12/20/22 04:45 Creatinine 1.24 mg/dL (0.70-1.30) 12/20/22 04:45 Est GFR (MDRD) Af Amer > 60 (>60) 12/20/22 04:45 Est GFR (MDRD) Non-Af > 60 (>60) 12/20/22 04:45 Glucose 232 mg/dL (65-99) H 12/20/22 04:45 POC Glucose (mg/dL) 209 mg/dL (65-99) H 12/20/22 10:59 Lactic Acid 1.6 mmol/L (0.4-2.0) 12/19/22 23:45 Calcium 7.6 mg/dL (8.5-10.1) L 12/20/22 04:45 Corrected Calcium 9.1 mg/dL (8.5-10.1) 12/20/22 04:45 Magnesium 2.0 mg/dL (2.0-2.9) 12/20/22 04:45 Total Bilirubin 0.20 mg/dL (0.2-1.0) 12/20/22 04:45 AST 11 Units/L (15-37) L 12/20/22 04:45 ALT 14 Units/L (12-78) 12/20/22 04:45 Alkaline Phosphatase 119 Units/L (46-116) H 12/20/22 04:45 Creatine Kinase 76 Units/L (39-308) 12/19/22 21:55 Troponin I High Sens 4.1 ng/L (4.0-60.0) 12/19/22 21:55 Total Protein 6.6 g/dL (6.4-8.2) 12/20/22 04:45 Albumin 2.1 g/dL (3.4-5.0) L 12/20/22 04:45 Globulin 4.5 g/dL (2.5-4.5) 12/20/22 04:45 Albumin/Globulin Ratio 0.5 Ratio (1.1-2.1) L 12/20/22 04:45 Specimen Type Clean catch urine 12/19/22 21:55 Urine Color Yellow (YELLOW) 12/19/22 21:55 Urine Appearance Clear (CLEAR) 12/19/22 21:55 Urine pH 5.0 (5.0 - 8.0) 12/19/22 21:55 Ur Specific [place] 1.005 (1.000-1.030) 12/19/22 21:55 Urine Protein 2+ (NEGATIVE) 12/19/22 21:55 Urine Glucose (UA) 4+ (NEGATIVE) 12/19/22 21:55 Urine Ketones 3+ (NEGATIVE) 12/19/22 21:55 Urine Blood 1+ (NEGATIVE) 12/19/22 21:55 Urine Nitrite Negative (NEGATIVE) 12/19/22 21:55 Urine Bilirubin Negative (NEGATIVE) 12/19/22 21:55 Urine Urobilinogen Normal (NORMAL) 12/19/22 21:55 Ur Leukocyte Esterase Negative (NEGATIVE) 12/19/22 21:55 Urine RBC 0-2 /HPF (0-3) 12/19/22 21:55 Urine WBC None seen /HPF (0-5) 12/19/22 21:55 Ur Squamous Epith Cells Rare /HPF (NEGATIVE) 12/19/22 21:55 Urine Bacteria Negative /HPF (NEGATIVE) 12/19/22 21:55 Urine Mucus Few /HPF (NEGATIVE) 12/19/22 21:55 Ur Culture Indicated? No/not indicated 12/19/22 21:55 Acetone, Semi-Quant Small (NEGATIVE) H 12/19/22 21:55 SARS-CoV-2 (PCR) Negative (NEGATIVE) 12/19/22 21:59 Influenza Type A (PCR) Negative (NEGATIVE) 12/19/22 21:59 Influenza Type B (PCR) Negative (NEGATIVE) 12/19/22 21:59 RSV (PCR) Negative (NEGATIVE) 12/19/22 21:59 Review of Systems Constitutional: Weakness Eyes: No Symptoms Reported ENT: No Symptoms Reported Respiratory: Cough and Shortness of Breath Cardiovascular: No Symptoms Reported Gastrointestinal: No Symptoms Reported Genitourinary: No Symptoms Reported Musculoskeletal: No Symptoms Reported Skin: No Symptoms Reported Neurological: No Symptoms Reported Physical Exam Vital Signs: Vital Signs Temperature 98.1 F Temperature 98.2 F Pulse Rate 87 Pulse Rate 76 Pulse Rate 92 Pulse Rate 76 Pulse Rate 84 Respiratory Rate 20 Respiratory Rate 19 Respiratory Rate 28 Respiratory Rate 16 Respiratory Rate 19 Blood Pressure 144/92 Blood Pressure 125/78 Blood Pressure 149/84 Blood Pressure 139/79 Blood Pressure 130/76 O2 Sat by Pulse Oximetry 98 O2 Sat by Pulse Oximetry 95 O2 Sat by Pulse Oximetry 96 O2 Sat by Pulse Oximetry 95 O2 Sat by Pulse Oximetry 96 Oriented: Normal Eyes: Normal Ear: Normal Nose: Normal Throat: Normal Respiratory: LLL Rales Cardiovascular: Normal : Normal Auscultation: Bowel Sounds: Normal Palpation: Normal Tenderness: Normal Skin: Normal Musculoskeletal: Normal Psychiatric: Normal Mood Description: Calm and Appropriate Affect: Normal Speech Pattern: Clear and Appropriate Assessment/Plan (1) Pneumonia: Narrative Support Text: IV antibiotics, AIT pending Status: Acute Review H&P Reviewed: Yes Patient was examined?: Yes
[2022-12-21] MEDS ORDERED: CONSULT PHARMACY - POTASSIUM & MAGNESIUM XX SCH (07:00)
--- NOTE | 2022-12-21 07:21 | RAD ---
EXAM:CHEST, 1 VIEWHISTORY:PNEUMONIA FOLLOW UP, HYPERGLYCEMIA; PMH:DIABETES PSH:HERNIA REPAIR X 2COMPARISON:12/19/2022.TECHNIQUE:AP view of the chestFINDINGS:The cardiac and mediastinal contours are normal in size. Elevated left hemidiaphragm. Similar-appearing of mid to lower lung airspace opacity. Moderate thickening of the right minor fissure. No pneumothorax.IMPRESSION:No significant change compared to prior radiograph.THIS IS AN ELECTRONICALLY VERIFIED FINAL [id number]/2022 7:18 AM - Electronically signed by Presley Miller MD
[2022-12-21] MEDS ORDERED: KLOR-CON PO SCH (08:30)
[2022-12-21] MEDS: ROBITUSSIN DM PO SCH ×4 (08:42→20:46)
[2022-12-21] MEDS: ZOFRAN INJ 4 MG VIAL IVP PRN (08:42)
[2022-12-21] MEDS: VSL#3 PO SCH (08:42)
[2022-12-21] MEDS: ZITHROMAX INJ 500 MG VIAL 500 MG in D5W 250 ML IV 250 ML IV SCH (08:42)
[2022-12-21] MEDS: DUONEB 0.5 MG/3 MG (3 mL) NEB SCH ×4 (08:58→21:15)
[2022-12-21] MEDS ORDERED: K-DUR TAB 20 MEQ PO SCH (09:00)
[2022-12-21] MEDS ORDERED: OMNIPAQUE 350 mg/mL 100 mL BTL 100 ML ONE (09:29)
--- NOTE | 2022-12-21 11:00 | CT ---
EXAM:CHEST WITH CONTRASTHISTORY:Cough, pneumoniaTECHNIQUE:Axial postcontrast images with coronal and sagittal reformats. Dose reduction procedures were used with mA/kv adjusted for body size.COMPARISON:NoneFINDINGS:Examination of the mediastinum demonstrated no evidence for mediastinal masses, and large mediastinal or enlarged hilar adenopathy or significant aortic abnormality. There is a left pleural effusion present. No significant right pleural effusion is identified. Those portions of the upper abdominal organs visualized appeared within normal limits. No chest wall or axillary abnormality is identified. Examination of the lung valladares demonstrated a large area of parenchymal consolidation in the left upper lobe abutting the pleura. Most consistent with pneumonia. There is abnormal parenchymal density in the left lower lobe abutting the pleural effusion likely atelectasis although pneumonia within the area of atelectasis is certainly possible. Remainder of the lung valladares are clear.IMPRESSION:Dense alveolar peripheral large left upper lobe pneumoniaLeft pleural effusion adjacent to which there is an area of parenchymal density likely representing atelectasis although infection within the area of atelectasis is certainly also possible.THIS IS AN ELECTRONICALLY VERIFIED FINAL [id number]/2022 10:56 AM - Electronically signed by Yovani Carreno MD
--- NOTE | 2022-12-21 15:40 | PCM.PROG ---
Progress Note Progress Note for Day of Date of Exam: 12/21/22 Subjective Subjective: Patient is a 47-year-old male with a past medical history of hypertension, diabetes mellitis, hyperlipidemia, admitted for pneumonia. This morning he is resting in bed. He reports pain in the left side of his back and has had persistent cough with sputum production. No acute events overnight. Labs/imaging: WBC 11.2, hemoglobin 12.8, platelets 476, sodium 139, potassium 3.6, creatinine 0.94, glucose 87, AIT pending, blood cultures pending, RSV/COVID/flu negative. CT chest was obtained that revealed: Dense alveolar peripheral large left upper lobe pneumonia. Left pleural effusion adjacent to which there is an area of parenchymal density likely representing atelectasis although infection within the area of atelectasis is certainly also possible. Continue with antibiotics Rocephin and azithromycin. Decrease IV fluids normal saline to KVO mL/h. Home medications have been resumed. Will consult general surgery-Dr Huertas to review CT impression. Order smart vest and I/S. Continue to closely monitor and follow-up labs/imaging. Past Medical Family Social History Allergies: Allergies bacitracin [From Neosporin ([id number])] Allergy (Mild, Verified 12/20/22 00:17) RASH replaces previous free-text entry neomycin [From Neosporin ([id number])] Allergy (Mild, Verified 12/20/22 00:17) RASH replaces previous free-text entry polymyxin B [From Neosporin ([id number])] Allergy (Mild, Verified 12/20/22 00:17) RASH replaces previous free-text entry Review of Systems ROS changes noted: see HPI Vital Signs and I&O's Vital Signs: Vital Signs Temperature 98.5 F Temperature 98.3 F Pulse Rate 101 Pulse Rate 100 Pulse Rate 100 Pulse Rate 103 Pulse Rate 104 Pulse Rate 104 Pulse Rate 103 Pulse Rate 104 Pulse Rate 104 Pulse Rate 115 Pulse Rate 104 Respiratory Rate 32 Respiratory Rate 27 Respiratory Rate 25 Respiratory Rate 29 Respiratory Rate 26 Respiratory Rate 30 Respiratory Rate 28 Respiratory Rate 24 Respiratory Rate 30 Respiratory Rate 22 Blood Pressure 157/86 Blood Pressure 157/86 O2 Sat by Pulse Oximetry 96 O2 Sat by Pulse Oximetry 96 O2 Sat by Pulse Oximetry 97 O2 Sat by Pulse Oximetry 97 O2 Sat by Pulse Oximetry 96 O2 Sat by Pulse Oximetry 96 O2 Sat by Pulse Oximetry 96 O2 Sat by Pulse Oximetry 96 O2 Sat by Pulse Oximetry 96 O2 Sat by Pulse Oximetry 94 O2 Sat by Pulse Oximetry 96 Intake and Output: Intake & Output 12/18/22 12/19/22 12/20/22 12/21/22 23:59 23:59 23:59 23:59 Intake Total 4090 / 4090 1080 / 1080 Output Total 750 / 750 Balance 3340 / 3340 1080 / 1080 Physical Exam Oriented: Normal Eyes: Normal Ear: Normal Nose: Normal Throat: Normal Respiratory: Normal Cardiovascular: Normal : Normal Auscultation: Bowel Sounds: Normal Tenderness: Normal Skin: Normal Musculoskeletal: Normal Psychiatric: Normal Mood Description: Calm and Appropriate Affect: Normal Speech Pattern: Clear and Appropriate Laboratory and Diagnostics 12/21/22 04:03 12/21/22 04:03 Labs: 12/19/22 23:45 Blood Blood Culture - Preliminary 12/19/22 21:55 Blood Blood Culture - Preliminary 12/20/22 13:29 Sputum - Expectorated Sputum Sputum Culture - Preliminary 12/20/22 13:29 Sputum - Expectorated Sputum - Final Laboratory WBC 11.2 X10^3/uL (3.6-10.0) H 12/21/22 04:03 RBC 5.02 X10^6/uL (4.7-6.0) 12/21/22 04:03 Hgb 12.8 g/dL (13.5-18.0) L 12/21/22 04:03 Hct 39.4 % (42.0-54.0) L 12/21/22 04:03 MCV 78.5 fL (80.0-100.0) L 12/21/22 04:03 MCH 25.4 pg (27.0-34.0) L 12/21/22 04:03 MCHC 32.4 g/dL (33.0-35.0) L 12/21/22 04:03 RDW 12.9 % (11.6-16.5) 12/21/22 04:03 Plt Count 476 X10^3/uL (150.0-450.0) H 12/21/22 04:03 MPV 7.5 fL (7.4-11.0) 12/21/22 04:03 Neut % (Auto) 72.6 % (42.0-75.0) 12/21/22 04:03 Lymph % (Auto) 14.1 % (21.0-51.0) L 12/21/22 04:03 [place] % (Auto) 10.9 % (0.0-13.0) 12/21/22 04:03 Eos % (Auto) 1.8 % (0.9-2.9) 12/21/22 04:03 Baso % (Auto) 0.6 % (0.2-1.0) 12/21/22 04:03 Neut # (Auto) 8.1 x10^3/uL (2.2-4.8) H 12/21/22 04:03 Lymph # (Auto) 1.6 X10^3/uL (1.3-2.9) 12/21/22 04:03 [place] # (Auto) 1.2 x10^3/uL (0.3-0.8) H 12/21/22 04:03 Eos # (Auto) 0.2 x10^3/uL (0.0-0.2) 12/21/22 04:03 Baso # (Auto) 0.1 X10^3/uL (0.0-0.1) 12/21/22 04:03 Absolute Nucleated RBC 0.0 /100WBC 12/21/22 04:03 Sample Site Rr 12/19/22 23:29 ABG pH 7.500 (7.35-7.45) H 12/19/22 23:29 ABG pCO2 36.0 mmHg (35.0-45.0) 12/19/22 23:29 ABG pO2 67.0 mmHg (80.0-100.0) L 12/19/22 23:29 ABG HCO3 28.1 mmol/L (22-26) H 12/19/22 23:29 ABG O2 Saturation 95.0 % (90-100) 12/19/22 23:29 ABG Base Excess 4.8 mmol/L (-2.0-2.0) H 12/19/22 23:29 Johnathan Test Pos 12/19/22 23:29 A-a Gradient 38.0 mmHg 12/19/22 23:29 FiO2 21.0 12/19/22 23:29 Blood Gas Comments Giacomo well sw 12/19/22 23:29 Sodium 139 mmol/L (136-145) 12/21/22 04:03 Corrected Sodium TNP 12/21/22 04:03 Potassium 3.6 mmol/L (3.5-5.1) 12/21/22 04:03 Chloride 105 mmol/L (98-107) 12/21/22 04:03 Carbon Dioxide 27.5 mmol/L (21-32) 12/21/22 04:03 BUN 10 mg/dL (7-18) 12/21/22 04:03 Creatinine 0.94 mg/dL (0.70-1.30) 12/21/22 04:03 Est GFR (MDRD) Af Amer > 60 (>60) 12/21/22 04:03 Est GFR (MDRD) Non-Af > 60 (>60) 12/21/22 04:03 Glucose 87 mg/dL (65-99) 12/21/22 04:03 POC Glucose (mg/dL) 131 mg/dL (65-99) H 12/21/22 11:07 Lactic Acid 1.6 mmol/L (0.4-2.0) 12/19/22 23:45 Calcium 7.4 mg/dL (8.5-10.1) L 12/21/22 04:03 Corrected Calcium 9.0 mg/dL (8.5-10.1) 12/21/22 04:03 Magnesium 2.0 mg/dL (2.0-2.9) 12/20/22 04:45 Total Bilirubin 0.30 mg/dL (0.2-1.0) 12/21/22 04:03 AST 10 Units/L (15-37) L 12/21/22 04:03 ALT 12 Units/L (12-78) 12/21/22 04:03 Alkaline Phosphatase 118 Units/L (46-116) H 12/21/22 04:03 Creatine Kinase 76 Units/L (39-308) 12/19/22 21:55 Troponin I High Sens 4.1 ng/L (4.0-60.0) 12/19/22 21:55 Total Protein 6.6 g/dL (6.4-8.2) 12/21/22 04:03 Albumin 2.0 g/dL (3.4-5.0) L 12/21/22 04:03 Globulin 4.6 g/dL (2.5-4.5) H 12/21/22 04:03 Albumin/Globulin Ratio 0.4 Ratio (1.1-2.1) L 12/21/22 04:03 Specimen Type Clean catch urine 12/19/22 21:55 Urine Color Yellow (YELLOW) 12/19/22 21:55 Urine Appearance Clear (CLEAR) 12/19/22 21:55 Urine pH 5.0 (5.0 - 8.0) 12/19/22 21:55 Ur Specific [place] 1.005 (1.000-1.030) 12/19/22 21:55 Urine Protein 2+ (NEGATIVE) 12/19/22 21:55 Urine Glucose (UA) 4+ (NEGATIVE) 12/19/22 21:55 Urine Ketones 3+ (NEGATIVE) 12/19/22 21:55 Urine Blood 1+ (NEGATIVE) 12/19/22 21:55 Urine Nitrite Negative (NEGATIVE) 12/19/22 21:55 Urine Bilirubin Negative (NEGATIVE) 12/19/22 21:55 Urine Urobilinogen Normal (NORMAL) 12/19/22 21:55 Ur Leukocyte Esterase Negative (NEGATIVE) 12/19/22 21:55 Urine RBC 0-2 /HPF (0-3) 12/19/22 21:55 Urine WBC None seen /HPF (0-5) 12/19/22 21:55 Ur Squamous Epith Cells Rare /HPF (NEGATIVE) 12/19/22 21:55 Urine Bacteria Negative /HPF (NEGATIVE) 12/19/22 21:55 Urine Mucus Few /HPF (NEGATIVE) 12/19/22 21:55 Ur Culture Indicated? No/not indicated 12/19/22 21:55 Acetone, Semi-Quant Small (NEGATIVE) H 12/19/22 21:55 SARS-CoV-2 (PCR) Negative (NEGATIVE) 12/19/22 21:59 Influenza Type A (PCR) Negative (NEGATIVE) 12/19/22 21:59 Influenza Type B (PCR) Negative (NEGATIVE) 12/19/22 21:59 RSV (PCR) Negative (NEGATIVE) 12/19/22 21:59 Plan (1) Pneumonia: Status: Acute
[2022-12-21] MEDS: NORCO 5/325 MG TAB PO PRN (19:57)
[2022-12-21] MEDS: ROCEPHIN VIAL 1 GRAM 1 G in NS 100 ML IV 100 ML IV SCH (20:46)
[2022-12-22] MEDS: NS 1,000 ML IV 1,000 ML IV SCH ×3 (04:03→19:16)
[2022-12-22 05:01] LABS: BASOPHILS # (AUTO) 0.1 X10^3/uL (0.0-0.1); BASOPHILS % (AUTO) 0.9 % (0.2-1.0); EOSINOPHILS # (AUTO) 0.1 x10^3/uL (0.0-0.2); EOSINOPHILS % (AUTO) 1.2 % (0.9-2.9); HEMOGLOBIN 12.6 g/dL (13.5-18.0); LYMPHOCYTES # (AUTO) 1.4 X10^3/uL (1.3-2.9); LYMPHOCYTES % (AUTO) 11.4 % (21.0-51.0); MEAN CORPUSCULAR HEMOGLOBIN 25.1 pg (27.0-34.0); MEAN CORPUSCULAR HGB CONC 32.2 g/dL (33.0-35.0); MEAN PLATELET VOLUME 7.3 fL (7.4-11.0); MONOCYTES # (AUTO) 1.5 x10^3/uL (0.3-0.8); NEUTROPHILS # (AUTO) 9.1 x10^3/uL (2.2-4.8); NEUTROPHILS % (AUTO) 74.5 % (42.0-75.0); PLATELET COUNT 478 X10^3/uL (150.0-450.0); RED CELL DISTRIBUTION WIDTH 13.1 % (11.6-16.5); WHITE BLOOD COUNT 12.3 X10^3/uL (3.6-10.0)
[2022-12-22 05:18] LABS: ALANINE AMINOTRANSFERASE 11 Units/L (12-78); ALKALINE PHOSPHATASE 124 Units/L (46-116); ASPARTATE AMINO TRANSFERASE 11 Units/L (15-37); BLOOD UREA NITROGEN 10 mg/dL (7-18); CALCIUM 7.8 mg/dL (8.5-10.1); CARBON DIOXIDE 22.3 mmol/L (21-32); CHLORIDE 102 mmol/L (98-107); COR CA(FOR HYPOALB) 9.4 mg/dL (8.5-10.1); COR NA(FOR HYPERGLY) 137 mmol/L (136-145); CREATININE 0.99 mg/dL (0.70-1.30); GLUCOSE 155 mg/dL (65-99); MAGNESIUM 1.9 mg/dL (2.0-2.9); POTASSIUM 4.1 mmol/L (3.5-5.1); SODIUM 136 mmol/L (136-145); TOTAL PROTEIN 6.7 g/dL (6.4-8.2); eGFR NON BLACK RACES > 60 (>60)
--- NOTE | 2022-12-22 07:58 | RAD ---
EXAM:Portable chestHISTORY:Follow-up pneumoniaCOMPARISON:12/21/2022 chest x-ray and CT chestFINDINGS:Heart size is normal. [place] are normal. Right lung is clear. Left mid lung predominantly upper lobe pneumonia is unchanged. There is elevation of the left hemidiaphragm and left pleural effusion present. Bony thorax is unremarkable.IMPRESSION:No change peripheral left upper lobe pneumoniaNo change elevated left hemidiaphragm and left pleural effusionTHIS IS AN ELECTRONICALLY VERIFIED FINAL [id number]/22/2022 7:41 AM - Electronically signed by Yovani Carreno MD
[2022-12-22 08:18] VITALS: BMI 27.9
[2022-12-22] MEDS: VSL#3 PO SCH (08:24)
[2022-12-22] MEDS: ROBITUSSIN DM PO SCH ×4 (08:24→20:01)
[2022-12-22] MEDS: NORCO 5/325 MG TAB PO PRN (08:25)
[2022-12-22] MEDS: DUONEB 0.5 MG/3 MG (3 mL) NEB SCH ×4 (08:52→21:15)
[2022-12-22] MEDS: LEVAQUIN PREMIX IV 750 MG 750 MG/150 ML BAG IV SCH (09:15)
[2022-12-22] MEDS: NovoLIN R (or HumuLIN R) SC PRN ×3 (12:01→20:09)
[2022-12-22] MEDS: COLACE CAP 100 MG PO SCH ×2 (12:03→12:11)
[2022-12-22] MEDS: COLACE SYRUP 100 MG UDC PO SCH ×2 (13:14→20:01)
--- NOTE | 2022-12-22 16:40 | PCM.PROG ---
Progress Note Progress Note for Day of Date of Exam: 12/22/22 Subjective Subjective: Patient is a 47-year-old male with a past medical history of hypertension, diabetes mellitis, hyperlipidemia, admitted for pneumonia. This morning he sitting up in bed and continues to have pain in left side of his back as well as persistent cough with sputum production. No acute events overnight. Labs/imaging: WBC 12.3, hemoglobin 12.6, platelets 478, sodium 136, potassium 4.1, creatinine 0.99, glucose 155, AIT positive for strep pneu. blood cultures NGTD, RSV/COVID/flu negative. Chest XR was obtained that revealed: No change peripheral left upper lobe pneumonia. No change elevated left hemidiaphragm and left pleural effusion. Will change antibiotics to IV levaquin. Continue IV flui ds normal saline at KVO mL/h, smart vest, I/S, and scheduled bronchodilators. Home medications have been resumed. General surgery-Dr Huertas consulted, follow up recommendations. Continue to closely monitor and follow-up labs/imaging. Past Medical Family Social History Allergies: Allergies bacitracin [From Neosporin ([id number])] Allergy (Mild, Verified 12/20/22 00:17) RASH replaces previous free-text entry neomycin [From Neosporin ([id number])] Allergy (Mild, Verified 12/20/22 00:17) RASH replaces previous free-text entry polymyxin B [From Neosporin ([id number])] Allergy (Mild, Verified 12/20/22 00:17) RASH replaces previous free-text entry Review of Systems ROS changes noted: see HPI Vital Signs and I&O's Vital Signs: Vital Signs Temperature 98.3 F Temperature 98.5 F Pulse Rate 96 Pulse Rate 106 Pulse Rate 99 Respiratory Rate 21 Respiratory Rate 16 Respiratory Rate 16 Respiratory Rate 33 Blood Pressure 146/84 Blood Pressure 147/87 O2 Sat by Pulse Oximetry 98 O2 Sat by Pulse Oximetry 95 O2 Sat by Pulse Oximetry 96 O2 Sat by Pulse Oximetry 95 Intake and Output: Intake & Output 12/19/22 12/20/22 12/21/22 12/22/22 23:59 23:59 23:59 23:59 Intake Total 4090 / 4090 3100 / 3100 1570 / 1570 Output Total 750 / 750 250 / 250 800 / 800 Balance 3340 / 3340 2850 / 2850 770 / 770 Physical Exam Oriented: Normal Eyes: Normal Ear: Normal Nose: Normal Throat: Normal Respiratory: Left and Rales Cardiovascular: Normal : Normal Auscultation: Bowel Sounds: Normal Tenderness: Normal Skin: Normal Musculoskeletal: Normal Psychiatric: Normal Mood Description: Calm and Appropriate Affect: Normal Speech Pattern: Clear and Appropriate Laboratory and Diagnostics 12/22/22 04:05 12/22/22 04:05 Labs: 12/20/22 13:29 Sputum - Expectorated Sputum Sputum Culture - Final 12/20/22 13:29 Sputum - Expectorated Sputum - Final 12/19/22 23:45 Blood Blood Culture - Preliminary 12/19/22 21:55 Blood Blood Culture - Preliminary Laboratory WBC 12.3 X10^3/uL (3.6-10.0) H 12/22/22 04:05 RBC 5.00 X10^6/uL (4.7-6.0) 12/22/22 04:05 Hgb 12.6 g/dL (13.5-18.0) L 12/22/22 04:05 Hct 39.0 % (42.0-54.0) L 12/22/22 04:05 MCV 78.0 fL (80.0-100.0) L 12/22/22 04:05 MCH 25.1 pg (27.0-34.0) L 12/22/22 04:05 MCHC 32.2 g/dL (33.0-35.0) L 12/22/22 04:05 RDW 13.1 % (11.6-16.5) 12/22/22 04:05 Plt Count 478 X10^3/uL (150.0-450.0) H 12/22/22 04:05 MPV 7.3 fL (7.4-11.0) L 12/22/22 04:05 Neut % (Auto) 74.5 % (42.0-75.0) 12/22/22 04:05 Lymph % (Auto) 11.4 % (21.0-51.0) L 12/22/22 04:05 [place] % (Auto) 12.0 % (0.0-13.0) 12/22/22 04:05 Eos % (Auto) 1.2 % (0.9-2.9) 12/22/22 04:05 Baso % (Auto) 0.9 % (0.2-1.0) 12/22/22 04:05 Neut # (Auto) 9.1 x10^3/uL (2.2-4.8) H 12/22/22 04:05 Lymph # (Auto) 1.4 X10^3/uL (1.3-2.9) 12/22/22 04:05 [place] # (Auto) 1.5 x10^3/uL (0.3-0.8) H 12/22/22 04:05 Eos # (Auto) 0.1 x10^3/uL (0.0-0.2) 12/22/22 04:05 Baso # (Auto) 0.1 X10^3/uL (0.0-0.1) 12/22/22 04:05 Absolute Nucleated RBC 0.0 /100WBC 12/22/22 04:05 Sample Site Rr 12/19/22 23:29 ABG pH 7.500 (7.35-7.45) H 12/19/22 23:29 ABG pCO2 36.0 mmHg (35.0-45.0) 12/19/22 23:29 ABG pO2 67.0 mmHg (80.0-100.0) L 12/19/22 23:29 ABG HCO3 28.1 mmol/L (22-26) H 12/19/22 23:29 ABG O2 Saturation 95.0 % (90-100) 12/19/22 23: ABG Base Excess 4.8 mmol/L (-2.0-2.0) H 12/19/22 23:29 Johnathan Test Pos 12/19/22 23:29 A-a Gradient 38.0 mmHg 12/19/22 23:29 FiO2 21.0 12/19/22 23:29 Blood Gas Comments Giacomo well sw 12/19/22 23:29 Sodium 136 mmol/L (136-145) 12/22/22 04:05 Corrected Sodium 137 mmol/L (136-145) 12/22/22 04:05 Potassium 4.1 mmol/L (3.5-5.1) 12/22/22 04:05 Chloride 102 mmol/L (98-107) 12/22/22 04:05 Carbon Dioxide 22.3 mmol/L (21-32) 12/22/22 04:05 BUN 10 mg/dL (7-18) 12/22/22 04:05 Creatinine 0.99 mg/dL (0.70-1.30) 12/22/22 04:05 Est GFR (MDRD) Af Amer > 60 (>60) 12/22/22 04:05 Est GFR (MDRD) Non-Af > 60 (>60) 12/22/22 04:05 Glucose 155 mg/dL (65-99) H 12/22/22 04:05 POC Glucose (mg/dL) 203 mg/dL (65-99) H 12/22/22 11:39 Lactic Acid 1.6 mmol/L (0.4-2.0) 12/19/22 23:45 Calcium 7.8 mg/dL (8.5-10.1) L 12/22/22 04:05 Corrected Calcium 9.4 mg/dL (8.5-10.1) 12/22/22 04:05 Magnesium 1.9 mg/dL (2.0-2.9) L 12/22/22 04:05 Total Bilirubin 0.50 mg/dL (0.2-1.0) 12/22/22 04:05 AST 11 Units/L (15-37) L 12/22/22 04:05 ALT 11 Units/L (12-78) L 12/22/22 04:05 Alkaline Phosphatase 124 Units/L (46-116) H 12/22/22 04:05 Creatine Kinase 76 Units/L (39-308) 12/19/22 21:55 Troponin I High Sens 4.1 ng/L (4.0-60.0) 12/19/22 21:55 Total Protein 6.7 g/dL (6.4-8.2) 12/22/22 04:05 Albumin 2.0 g/dL (3.4-5.0) L 12/22/22 04:05 Globulin 4.7 g/dL (2.5-4.5) H 12/22/22 04:05 Albumin/Globulin Ratio 0.4 Ratio (1.1-2.1) L 12/22/22 04:05 Specimen Type Clean catch urine 12/19/22 21:55 Urine Color Yellow (YELLOW) 12/19/22 21:55 Urine Appearance Clear (CLEAR) 12/19/22 21:55 Urine pH 5.0 (5.0 - 8.0) 12/19/22 21:55 Ur Specific [place] 1.005 (1.000-1.030) 12/19/22 21:55 Urine Protein 2+ (NEGATIVE) 12/19/22 21:55 Urine Glucose (UA) 4+ (NEGATIVE) 12/19/22 21:55 Urine Ketones 3+ (NEGATIVE) 12/19/22 21:55 Urine Blood 1+ (NEGATIVE) 12/19/22 21:55 Urine Nitrite Negative (NEGATIVE) 12/19/22 21:55 Urine Bilirubin Negative (NEGATIVE) 12/19/22 21:55 Urine Urobilinogen Normal (NORMAL) 12/19/22 21:55 Ur Leukocyte Esterase Negative (NEGATIVE) 12/19/22 21:55 Urine RBC 0-2 /HPF (0-3) 12/19/22 21:55 Urine WBC None seen /HPF (0-5) 12/19/22 21:55 Ur Squamous Epith Cells Rare /HPF (NEGATIVE) 12/19/22 21:55 Urine Bacteria Negative /HPF (NEGATIVE) 12/19/22 21:55 Urine Mucus Few /HPF (NEGATIVE) 12/19/22 21:55 Ur Culture Indicated? No/not indicated 12/19/22 21:55 Acetone, Semi-Quant Small (NEGATIVE) H 12/19/22 21:55 SARS-CoV-2 (PCR) Negative (NEGATIVE) 12/19/22 21:59 Influenza Type A (PCR) Negative (NEGATIVE) 12/19/22 21:59 Influenza Type B (PCR) Negative (NEGATIVE) 12/19/22 21:59 RSV (PCR) Negative (NEGATIVE) 12/19/22 21:59 Resp Viral Panel (PCR) See scanned report 12/20/22 01:15 Plan (1) Pneumonia: Status: Acute
[2022-12-22] MEDS ORDERED: CONSULT PHARMACY - POTASSIUM & MAGNESIUM XX SCH (21:00)
[2022-12-22] MEDS: TUSSIONEX PENNKINETIC SUSP PO PRN (21:48)
[2022-12-23] MEDS: NS 1,000 ML IV 1,000 ML IV SCH ×3 (04:27→19:47)
[2022-12-23 05:27] LABS: BASOPHILS # (AUTO) 0.1 X10^3/uL (0.0-0.1); BASOPHILS % (AUTO) 0.7 % (0.2-1.0); EOSINOPHILS # (AUTO) 0.1 x10^3/uL (0.0-0.2); EOSINOPHILS % (AUTO) 0.8 % (0.9-2.9); HEMOGLOBIN 13.2 g/dL (13.5-18.0); LYMPHOCYTES # (AUTO) 0.9 X10^3/uL (1.3-2.9); MEAN CORPUSCULAR HEMOGLOBIN 25.6 pg (27.0-34.0); MEAN CORPUSCULAR HGB CONC 32.9 g/dL (33.0-35.0); MEAN PLATELET VOLUME 7.7 fL (7.4-11.0); MONOCYTES # (AUTO) 1.4 x10^3/uL (0.3-0.8); MONOCYTES % (AUTO) 12.3 % (0.0-13.0); NEUTROPHILS # (AUTO) 8.6 x10^3/uL (2.2-4.8); NEUTROPHILS % (AUTO) 78.2 % (42.0-75.0); PLATELET COUNT 502 X10^3/uL (150.0-450.0); RED BLOOD COUNT 5.13 X10^6/uL (4.7-6.0); RED CELL DISTRIBUTION WIDTH 13.3 % (11.6-16.5); WHITE BLOOD COUNT 11.1 X10^3/uL (3.6-10.0)
[2022-12-23 05:44] LABS: ALANINE AMINOTRANSFERASE 14 Units/L (12-78); ALKALINE PHOSPHATASE 128 Units/L (46-116); ASPARTATE AMINO TRANSFERASE 12 Units/L (15-37); BLOOD UREA NITROGEN 11 mg/dL (7-18); CALCIUM 8.2 mg/dL (8.5-10.1); CARBON DIOXIDE 23.2 mmol/L (21-32); CHLORIDE 102 mmol/L (98-107); COR CA(FOR HYPOALB) 9.8 mg/dL (8.5-10.1); COR NA(FOR HYPERGLY) 139 mmol/L (136-145); CREATININE 1.03 mg/dL (0.70-1.30); GLUCOSE 178 mg/dL (65-99); MAGNESIUM 1.8 mg/dL (2.0-2.9); SODIUM 137 mmol/L (136-145); eGFR NON BLACK RACES > 60 (>60)
--- NOTE | 2022-12-23 06:13 | RAD ---
EXAM:CHEST, 1 VIEWHISTORY:PNEUMONIA F/U ;COMPARISON:12/22/2022FINDINGS:The cardiomediastinal silhouette is stable.Similar left-sided opacities. No pneumothorax. The right lung is clear.No acute osseous abnormality.IMPRESSION:Similar left-sided opacities.THIS IS AN ELECTRONICALLY VERIFIED FINAL [id number]/23/2022 6:09 AM - Electronically signed by Yovani Carreno MD
[2022-12-23] MEDS ORDERED: CONSULT PHARMACY - POTASSIUM & MAGNESIUM XX SCH (07:00)
[2022-12-23] MEDS: TUSSIONEX PENNKINETIC SUSP PO PRN (07:50)
[2022-12-23] MEDS: ZOFRAN INJ 4 MG VIAL IVP PRN (07:50)
[2022-12-23] MEDS: LEVAQUIN PREMIX IV 750 MG 750 MG/150 ML BAG IV SCH (08:55)
[2022-12-23] MEDS ORDERED: MAG-OX TAB PO SCH (09:00)
[2022-12-23] MEDS: COLACE SYRUP 100 MG UDC PO SCH ×2 (09:03→21:20)
[2022-12-23] MEDS: ROBITUSSIN DM PO SCH ×4 (09:03→21:21)
[2022-12-23] MEDS: VSL#3 PO SCH (09:03)
[2022-12-23] MEDS: TYLENOL 325 MG TAB PO PRN ×2 (09:34→19:42)
[2022-12-23] MEDS: DUONEB 0.5 MG/3 MG (3 mL) NEB SCH ×5 (09:59→20:51)
[2022-12-23] MEDS: XANAX PO PRN ×2 (10:09→21:20)
[2022-12-23] MEDS: MAGNESIUM SULFATE 1 GRAM/100 mL PREMIX 1 G/100 ML BAG IV SCH ×2 (10:32→12:53)
[2022-12-23] MEDS: NovoLIN R (or HumuLIN R) SC PRN ×3 (12:48→21:46)
[2022-12-23] MEDS ORDERED: PULMICORT NEB TX 0.5 MG NEB ONE (19:56)
[2022-12-23] MEDS: PULMICORT NEB TX 0.5 MG NEB SCH (20:51)
[2022-12-24] MEDS: NS 1,000 ML IV 1,000 ML IV SCH ×3 (03:25→20:15)
[2022-12-24] MEDS: TUSSIONEX PENNKINETIC SUSP PO PRN ×2 (03:48→15:59)
[2022-12-24 05:27] LABS: BASOPHILS # (AUTO) 0.1 X10^3/uL (0.0-0.1); BASOPHILS % (AUTO) 0.6 % (0.2-1.0); EOSINOPHILS # (AUTO) 0.1 x10^3/uL (0.0-0.2); EOSINOPHILS % (AUTO) 0.8 % (0.9-2.9); HEMATOCRIT 41.5 % (42.0-54.0); HEMOGLOBIN 13.8 g/dL (13.5-18.0); LYMPHOCYTES # (AUTO) 1.2 X10^3/uL (1.3-2.9); LYMPHOCYTES % (AUTO) 12.6 % (21.0-51.0); MEAN CORPUSCULAR HEMOGLOBIN 25.9 pg (27.0-34.0); MEAN CORPUSCULAR HGB CONC 33.2 g/dL (33.0-35.0); MEAN PLATELET VOLUME 7.4 fL (7.4-11.0); MONOCYTES # (AUTO) 1.7 x10^3/uL (0.3-0.8); MONOCYTES % (AUTO) 17.3 % (0.0-13.0); NEUTROPHILS # (AUTO) 6.6 x10^3/uL (2.2-4.8); NEUTROPHILS % (AUTO) 68.7 % (42.0-75.0); PLATELET COUNT 487 X10^3/uL (150.0-450.0); RED BLOOD COUNT 5.32 X10^6/uL (4.7-6.0); RED CELL DISTRIBUTION WIDTH 13.3 % (11.6-16.5); WHITE BLOOD COUNT 9.7 X10^3/uL (3.6-10.0)
[2022-12-24 05:43] LABS: ALANINE AMINOTRANSFERASE 14 Units/L (12-78); ALBUMIN 2.1 g/dL (3.4-5.0); ALKALINE PHOSPHATASE 124 Units/L (46-116); ASPARTATE AMINO TRANSFERASE 12 Units/L (15-37); BLOOD UREA NITROGEN 12 mg/dL (7-18); CALCIUM 8.6 mg/dL (8.5-10.1); CARBON DIOXIDE 26.7 mmol/L (21-32); CHLORIDE 99 mmol/L (98-107); COR CA(FOR HYPOALB) 10.1 mg/dL (8.5-10.1); COR NA(FOR HYPERGLY) 138 mmol/L (136-145); GLUCOSE 208 mg/dL (65-99); POTASSIUM 4.2 mmol/L (3.5-5.1); SODIUM 135 mmol/L (136-145); TOTAL PROTEIN 7.3 g/dL (6.4-8.2); eGFR NON BLACK RACES > 60 (>60)
[2022-12-24] MEDS: NovoLIN R (or HumuLIN R) SC PRN ×4 (06:04→20:45)
[2022-12-24] MEDS: VSL#3 PO SCH (08:45)
[2022-12-24] MEDS: LEVAQUIN PREMIX IV 750 MG 750 MG/150 ML BAG IV SCH (08:46)
[2022-12-24] MEDS: ROBITUSSIN DM PO SCH ×4 (08:46→20:14)
[2022-12-24] MEDS: COLACE SYRUP 100 MG UDC PO SCH ×2 (08:46→20:14)
[2022-12-24] MEDS: XANAX PO PRN (08:46)
--- NOTE | 2022-12-24 08:58 | PCM.PROG ---
Progress Note Progress Note for Day of Date of Exam: 12/23/22 Subjective Subjective: Patient is a 47-year-old male with a past medical history of hypertension, diabetes mellitis, hyperlipidemia, admitted for strep pneumoniae. This morning he does report some improvement in his breathing. No acute events overnight. Labs/imaging: WBC 11.1, hemoglobin 13.2, platelets 502, sodium 137, potassium 4.0, creatinine 1.03, glucose 178, AIT positive for strep pneu. blood cultures NGTD, RSV/COVID/flu negative. Chest XR was obtained that revealed: No change from prior. Pt is currently on antibiotics IV levaquin. Continue IV fluids normal saline at KVO mL/h, smart vest, I/S, and scheduled bronchodilators. Home medications have been resumed. Discussed with hospitalist Dr. Florse in [place] who spoke with pulmonologyDrSara Thomas, patient not a candidate for bronchoscopy and recommends discontinuing IV antibiotics. Otherwise, will continue with current treatment plan. Continue to closely monitor and follow-up labs/imaging. Past Medical Family Social History Allergies: Allergies bacitracin [From Neosporin ([id number])] Allergy (Mild, Verified 12/20/22 00:17) RASH replaces previous free-text entry neomycin [From Neosporin ([id number])] Allergy (Mild, Verified 12/20/22 00:17) RASH replaces previous free-text entry polymyxin B [From Neosporin ([id number])] Allergy (Mild, Verified 12/20/22 00:17) RASH replaces previous free-text entry Review of Systems ROS changes noted: see HPI Vital Signs and I&O's Vital Signs: Vital Signs Temperature 98.1 F Pulse Rate 104 Respiratory Rate 21 Blood Pressure 130/83 O2 Sat by Pulse Oximetry 97 Intake and Output: Intake & Output 12/21/22 12/22/22 12/23/22 12/24/22 23:59 23:59 23:59 23:59 Intake Total 3100 / 3100 2275 / 2275 2494 / 2494 400 / 400 Output Total 250 / 250 1850 / 1850 2850 / 2850 1500 / 1500 Balance 2850 / 2850 425 / 425 -356 / -356 -1100 / -1100 Physical Exam Oriented: Normal Eyes: Normal Ear: Normal Nose: Normal Throat: Normal Respiratory: Left and Rales Cardiovascular: Normal : Normal Auscultation: Bowel Sounds: Normal Tenderness: Normal Skin: Normal Musculoskeletal: Normal Psychiatric: Normal Mood Description: Calm and Appropriate Affect: Normal Speech Pattern: Clear and Appropriate Laboratory and Diagnostics 12/24/22 04:30 12/24/22 04:30 Labs: 12/20/22 13:29 Sputum - Expectorated Sputum Sputum Culture - Final 12/20/22 13:29 Sputum - Expectorated Sputum - Final 12/19/22 23:45 Blood Blood Culture - Preliminary 12/19/22 21:55 Blood Blood Culture - Preliminary Laboratory WBC 9.7 X10^3/uL (3.6-10.0) 12/24/22 04:30 RBC 5.32 X10^6/uL (4.7-6.0) 12/24/22 04:30 Hgb 13.8 g/dL (13.5-18.0) 12/24/22 04:30 Hct 41.5 % (42.0-54.0) L 12/24/22 04:30 MCV 78.0 fL (80.0-100.0) L 12/24/22 04:30 MCH 25.9 pg (27.0-34.0) L 12/24/22 04:30 MCHC 33.2 g/dL (33.0-35.0) 12/24/22 04:30 RDW 13.3 % (11.6-16.5) 12/24/22 04:30 Plt Count 487 X10^3/uL (150.0-450.0) H 12/24/22 04:30 MPV 7.4 fL (7.4-11.0) 12/24/22 04:30 Neut % (Auto) 68.7 % (42.0-75.0) 12/24/22 04:30 Lymph % (Auto) 12.6 % (21.0-51.0) L 12/24/22 04:30 [place] % (Auto) 17.3 % (0.0-13.0) H 12/24/22 04:30 Eos % (Auto) 0.8 % (0.9-2.9) L 12/24/22 04:30 Baso % (Auto) 0.6 % (0.2-1.0) 12/24/22 04:30 Neut # (Auto) 6.6 x10^3/uL (2.2-4.8) H 12/24/22 04:30 Lymph # (Auto) 1.2 X10^3/uL (1.3-2.9) L 12/24/22 04:30 [place] # (Auto) 1.7 x10^3/uL (0.3-0.8) H 12/24/22 04:30 Eos # (Auto) 0.1 x10^3/uL (0.0-0.2) 12/24/22 04:30 Baso # (Auto) 0.1 X10^3/uL (0.0-0.1) 12/24/22 04:30 Absolute Nucleated RBC 0.1 /100WBC 12/24/22 04:30 Sample Site Rr 12/19/22 23:29 ABG pH 7.500 (7.35-7.45) H 12/19/22 23:29 ABG pCO2 36.0 mmHg (35.0-45.0) 12/19/22 23:29 ABG pO2 67.0 mmHg (80.0-100.0) L 12/19/22 23:29 ABG HCO3 28.1 mmol/L (22-26) H 12/19/22 23:29 ABG O2 Saturation 95.0 % (90-100) 12/19/22 23:29 ABG Base Excess 4.8 mmol/L (-2.0-2.0) H 12/19/22 23:29 Johnathan Test Pos 12/19/22 23:29 A-a Gradient 38.0 mmHg 12/19/22 23:29 FiO2 21.0 12/19/22 23:29 Blood Gas Comments Giacomo well sw 12/19/22 23:29 Sodium 135 mmol/L (136-145) L 12/24/22 04:30 Corrected Sodium 138 mmol/L (136-145) 12/24/22 04:30 Potassium 4.2 mmol/L (3.5-5.1) 12/24/22 04:30 Chloride 99 mmol/L (98-107) 12/24/22 04:30 Carbon Dioxide 26.7 mmol/L (21-32) 12/24/22 04:30 BUN 12 mg/dL (7-18) 12/24/22 04:30 Creatinine 1.10 mg/dL (0.70-1.30) 12/24/22 04:30 Est GFR (MDRD) Af Amer > 60 (>60) 12/24/22 04:30 Est GFR (MDRD) Non-Af > 60 (>60) 12/24/22 04:30 Glucose 208 mg/dL (65-99) H 12/24/22 04:30 POC Glucose (mg/dL) 224 mg/dL (65-99) H 12/24/22 05:49 Lactic Acid 1.6 mmol/L (0.4-2.0) 12/19/22 23:45 Calcium 8.6 mg/dL (8.5-10.1) 12/24/22 04:30 Corrected Calcium 10.1 mg/dL (8.5-10.1) 12/24/22 04:30 Magnesium 2.0 mg/dL (2.0-2.9) 12/24/22 04:30 Total Bilirubin 0.40 mg/dL (0.2-1.0) 12/24/22 04:30 AST 12 Units/L (15-37) L 12/24/22 04:30 ALT 14 Units/L (12-78) 12/24/22 04:30 Alkaline Phosphatase 124 Units/L (46-116) H 12/24/22 04:30 Creatine Kinase 76 Units/L (39-308) 12/19/22 21:55 Troponin I High Sens 4.1 ng/L (4.0-60.0) 12/19/22 21:55 Total Protein 7.3 g/dL (6.4-8.2) 12/24/22 04:30 Albumin 2.1 g/dL (3.4-5.0) L 12/24/22 04:30 Globulin 5.2 g/dL (2.5-4.5) H 12/24/22 04:30 Albumin/Globulin Ratio 0.4 Ratio (1.1-2.1) L 12/24/22 04:30 Specimen Type Clean catch urine 12/19/22 21:55 Urine Color Yellow (YELLOW) 12/19/22 21:55 Urine Appearance Clear (CLEAR) 12/19/22 21:55 Urine pH 5.0 (5.0 - 8.0) 12/19/22 21:55 Ur Specific [place] 1.005 (1.000-1.030) 12/19/22 21:55 Urine Protein 2+ (NEGATIVE) 12/19/22 21:55 Urine Glucose (UA) 4+ (NEGATIVE) 12/19/22 21:55 Urine Ketones 3+ (NEGATIVE) 12/19/22 21:55 Urine Blood 1+ (NEGATIVE) 12/19/22 21:55 Urine Nitrite Negative (NEGATIVE) 12/19/22 21:55 Urine Bilirubin Negative (NEGATIVE) 12/19/22 21:55 Urine Urobilinogen Normal (NORMAL) 12/19/22 21:55 Ur Leukocyte Esterase Negative (NEGATIVE) 12/19/22 21:55 Urine RBC 0-2 /HPF (0-3) 12/19/22 21:55 Urine WBC None seen /HPF (0-5) 12/19/22 21:55 Ur Squamous Epith Cells Rare /HPF (NEGATIVE) 12/19/22 21:55 Urine Bacteria Negative /HPF (NEGATIVE) 12/19/22 21:55 Urine Mucus Few /HPF (NEGATIVE) 12/19/22 21:55 Ur Culture Indicated? No/not indicated 12/19/22 21:55 Acetone, Semi-Quant Small (NEGATIVE) H 12/19/22 21:55 SARS-CoV-2 (PCR) Negative (NEGATIVE) 12/19/22 21:59 Influenza Type A (PCR) Negative (NEGATIVE) 12/19/22 21:59 Influenza Type B (PCR) Negative (NEGATIVE) 12/19/22 21:59 RSV (PCR) Negative (NEGATIVE) 12/19/22 21:59 Resp Viral Panel (PCR) See scanned report 12/20/22 01:15 Plan (1) Pneumonia: Status: Acute
[2022-12-24] MEDS: DUONEB 0.5 MG/3 MG (3 mL) NEB SCH ×3 (09:30→16:57)
[2022-12-24] MEDS: PULMICORT NEB TX 0.5 MG NEB SCH ×2 (09:31→20:44)
--- NOTE | 2022-12-24 09:57 | RAD ---
EXAM:Portable AP chestHISTORY:Follow-up pneumoniaCOMPARISON:December 23, 2022FINDINGS:There is persistent airspace involvement in the left lower lobe with associated diaphragm elevation. The diaphragm is slightly better visualized than before. There is no new abnormality noted.IMPRESSION:Minimal apparent interval improvement in left lower lung pneumonia. No new abnormality demonstrated.THIS IS AN ELECTRONICALLY VERIFIED FINAL [id number]/24/2022 9:54 AM - Electronically signed by Bhavik Mayes MD
--- NOTE | 2022-12-24 10:39 | PCM.PROG ---
Progress Note Progress Note for Day of Date of Exam: 12/24/22 Subjective Subjective: Patient is a 47-year-old male with a past medical history of hypertension, diabetes mellitis, hyperlipidemia, admitted for strep pneumoniae. This morning he reports feeling a little better. Labs/imaging: WBC 9.7, hemoglobin 13.8, platelets 487, sodium 135, potassium 4.2, creatinine 1.10, glu cose 208, AIT positive for strep pneu. blood cultures NGTD. Chest XR was obtained that revealed: minimal improvement. Pt is currently on antibiotics IV levaquin. Continue IV fluids normal saline at KVO mL/h, smart vest, I/S, and scheduled bronchodilators. Home medications have been resumed. Otherwise, will continue with current treatment plan. Continue to closely monitor and follow-up labs/imaging. Past Medical Family Social History Allergies: Allergies bacitracin [From Neosporin ([id number])] Allergy (Mild, Verified 12/20/22 00:17) RASH replaces previous free-text entry neomycin [From Neosporin ([id number])] Allergy (Mild, Verified 12/20/22 00:17) RASH replaces previous free-text entry polymyxin B [From Neosporin ([id number])] Allergy (Mild, Verified 12/20/22 00:17) RASH replaces previous free-text entry Review of Systems ROS changes noted: see HPI Vital Signs and I&O's Vital Signs: Vital Signs Temperature 98.1 F Pulse Rate 104 Respiratory Rate 21 Blood Pressure 130/83 O2 Sat by Pulse Oximetry 97 Intake and Output: Intake & Output 12/21/22 12/22/22 12/23/22 12/24/22 23:59 23:59 23:59 23:59 Intake Total 3100 / 3100 2275 / 2275 2494 / 2494 400 / 400 Output Total 250 / 250 1850 / 1850 2850 / 2850 1500 / 1500 Balance 2850 / 2850 425 / 425 -356 / -356 -1100 / -1100 Physical Exam Oriented: Normal Eyes: Normal Ear: Normal Nose: Normal Throat: Normal Respiratory: Left and Diminished Cardiovascular: Normal : Normal Auscultation: Bowel Sounds: Normal Tenderness: Normal Skin: Normal Musculoskeletal: Normal Psychiatric: Normal Mood Description: Calm and Appropriate Affect: Normal Speech Pattern: Clear and Appropriate Laboratory and Diagnostics 12/24/22 04:30 12/24/22 04:30 Labs: 12/20/22 13:29 Sputum - Expectorated Sputum Sputum Culture - Final 12/20/22 13:29 Sputum - Expectorated Sputum - Final 12/19/22 23:45 Blood Blood Culture - Preliminary 12/19/22 21:55 Blood Blood Culture - Preliminary Laboratory WBC 9.7 X10^3/uL (3.6-10.0) 12/24/22 04:30 RBC 5.32 X10^6/uL (4.7-6.0) 12/24/22 04:30 Hgb 13.8 g/dL (13.5-18.0) 12/24/22 04:30 Hct 41.5 % (42.0-54.0) L 12/24/22 04:30 MCV 78.0 fL (80.0-100.0) L 12/24/22 04:30 MCH 25.9 pg (27.0-34.0) L 12/24/22 04:30 MCHC 33.2 g/dL (33.0-35.0) 12/24/22 04:30 RDW 13.3 % (11.6-16.5) 12/24/22 04:30 Plt Count 487 X10^3/uL (150.0-450.0) H 12/24/22 04:30 MPV 7.4 fL (7.4-11.0) 12/24/22 04:30 Neut % (Auto) 68.7 % (42.0-75.0) 12/24/22 04:30 Lymph % (Auto) 12.6 % (21.0-51.0) L 12/24/22 04:30 [place] % (Auto) 17.3 % (0.0-13.0) H 12/24/22 04:30 Eos % (Auto) 0.8 % (0.9-2.9) L 12/24/22 04:30 Baso % (Auto) 0.6 % (0.2-1.0) 12/24/22 04:30 Neut # (Auto) 6.6 x10^3/uL (2.2-4.8) H 12/24/22 04:30 Lymph # (Auto) 1.2 X10^3/uL (1.3-2.9) L 12/24/22 04:30 [place] # (Auto) 1.7 x10^3/uL (0.3-0.8) H 12/24/22 04:30 Eos # (Auto) 0.1 x10^3/uL (0.0-0.2) 12/24/22 04:30 Baso # (Auto) 0.1 X10^3/uL (0.0-0.1) 12/24/22 04:30 Absolute Nucleated RBC 0.1 /100WBC 12/24/22 04:30 Sample Site Rr 12/19/22 23:29 ABG pH 7.500 (7.35-7.45) H 12/19/22 23:29 ABG pCO2 36.0 mmHg (35.0-45.0) 12/19/22 23:29 ABG pO2 67.0 mmHg (80.0-100.0) L 12/19/22 23:29 ABG HCO3 28.1 mmol/L (22-26) H 12/19/22 23:29 ABG O2 Saturation 95.0 % (90-100) 12/19/22 23:29 ABG Base Excess 4.8 mmol/L (-2.0-2.0) H 12/19/22 23:29 Johnathan Test Pos 12/19/22 23:29 A-a Gradient 38.0 mmHg 12/19/22 23:29 FiO2 21.0 12/19/22 23:29 Blood Gas Comments Giacomo well sw 12/19/22 23:29 Sodium 135 mmol/L (136-145) L 12/24/22 04:30 Corrected Sodium 138 mmol/L (136-145) 12/24/22 04:30 Potassium 4.2 mmol/L (3.5-5.1) 12/24/22 04:30 Chloride 99 mmol/L (98-107) 12/24/22 04:30 Carbon Dioxide 26.7 mmol/L (21-32) 12/24/22 04:30 BUN 12 mg/dL (7-18) 12/24/22 04:30 Creatinine 1.10 mg/dL (0.70-1.30) 12/24/22 04:30 Est GFR (MDRD) Af Amer > 60 (>60) 12/24/22 04:30 Est GFR (MDRD) Non-Af > 60 (>60) 12/24/22 04:30 Glucose 208 mg/dL (65-99) H 12/24/22 04:30 POC Glucose (mg/dL) 224 mg/dL (65-99) H 12/24/22 05:49 Lactic Acid 1.6 mmol/L (0.4-2.0) 12/19/22 23:45 Calcium 8.6 mg/dL (8.5-10.1) 12/24/22 04:30 Corrected Calcium 10.1 mg/dL (8.5-10.1) 12/24/22 04:30 Magnesium 2.0 mg/dL (2.0-2.9) 12/24/22 04:30 Total Bilirubin 0.40 mg/dL (0.2-1.0) 12/24/22 04:30 AST 12 Units/L (15-37) L 12/24/22 04:30 ALT 14 Units/L (12-78) 12/24/22 04:30 Alkaline Phosphatase 124 Units/L (46-116) H 12/24/22 04:30 Creatine Kinase 76 Units/L (39-308) 12/19/22 21:55 Troponin I High Sens 4.1 ng/L (4.0-60.0) 12/19/22 21:55 Total Protein 7.3 g/dL (6.4-8.2) 12/24/22 04:30 Albumin 2.1 g/dL (3.4-5.0) L 12/24/22 04:30 Globulin 5.2 g/dL (2.5-4.5) H 12/24/22 04:30 Albumin/Globulin Ratio 0.4 Ratio (1.1-2.1) L 12/24/22 04:30 Specimen Type Clean catch urine 12/19/22 21:55 Urine Color Yellow (YELLOW) 12/19/22 21:55 Urine Appearance Clear (CLEAR) 12/19/22 21:55 Urine pH 5.0 (5.0 - 8.0) 12/19/22 21:55 Ur Specific [place] 1.005 (1.000-1.030) 12/19/22 21:55 Urine Protein 2+ (NEGATIVE) 12/19/22 21:55 Urine Glucose (UA) 4+ (NEGATIVE) 12/19/22 21:55 Urine Ketones 3+ (NEGATIVE) 12/19/22 21:55 Urine Blood 1+ (NEGATIVE) 12/19/22 21:55 Urine Nitrite Negative (NEGATIVE) 12/19/22 21:55 Urine Bilirubin Negative (NEGATIVE) 12/19/22 21:55 Urine Urobilinogen Normal (NORMAL) 12/19/22 21:55 Ur Leukocyte Esterase Negative (NEGATIVE) 12/19/22 21:55 Urine RBC 0-2 /HPF (0-3) 12/19/22 21:55 Urine WBC None seen /HPF (0-5) 12/19/22 21:55 Ur Squamous Epith Cells Rare /HPF (NEGATIVE) 12/19/22 21:55 Urine Bacteria Negative /HPF (NEGATIVE) 12/19/22 21:55 Urine Mucus Few /HPF (NEGATIVE) 12/19/22 21:55 Ur Culture Indicated? No/not indicated 12/19/22 21:55 Acetone, Semi-Quant Small (NEGATIVE) H 12/19/22 21:55 SARS-CoV-2 (PCR) Negative (NEGATIVE) 12/19/22 21:59 Influenza Type A (PCR) Negative (NEGATIVE) 12/19/22 21:59 Influenza Type B (PCR) Negative (NEGATIVE) 12/19/22 21:59 RSV (PCR) Negative (NEGATIVE) 12/19/22 21:59 Resp Viral Panel (PCR) See scanned report 12/20/22 01:15 Plan (1) Pneumonia: Status: Acute
[2022-12-24] MEDS: ZOFRAN INJ 4 MG VIAL IVP PRN (12:32)
[2022-12-24] MEDS ORDERED: LOPRESSOR INJ 5 MG AMP IVP ONE (17:32)
[2022-12-24] MEDS ORDERED: LOPRESSOR INJ 5 MG AMP ONE (17:34)
--- NOTE | 2022-12-24 17:40 | EKG ---
Test Reason : ELEVATED HR Blood Pressure : */* mmHG Vent. Rate : 109 BPM Atrial Rate : 109 BPM P-R Int : 122 ms QRS Dur : 72 ms QT Int : 328 ms P-R-T Axes : 43 26 45 degrees QTc Int : 441 ms Sinus tachycardia Otherwise normal ECG No previous ECGs available Confirmed by Renny Velazquez MD ([id number]) on 12/25/2022 7:57:13 AM Referred By: Confirmed By: Renny Velazquez MD
[2022-12-24] MEDS: MILK OF MAGNESIA PO PRN (20:14)
[2022-12-24] MEDS: NORCO 5/325 MG TAB PO PRN (20:14)
[2022-12-24] MEDS: XOPENEX 1.25 MG/3 ML NEBULE NEB SCH (20:44)
[2022-12-25] MEDS: TUSSIONEX PENNKINETIC SUSP PO PRN ×2 (03:21→15:00)
[2022-12-25 05:26] LABS: BASOPHILS # (AUTO) 0.1 X10^3/uL (0.0-0.1); BASOPHILS % (AUTO) 0.8 % (0.2-1.0); EOSINOPHILS # (AUTO) 0.1 x10^3/uL (0.0-0.2); EOSINOPHILS % (AUTO) 1.2 % (0.9-2.9); HEMATOCRIT 42.1 % (42.0-54.0); HEMOGLOBIN 13.9 g/dL (13.5-18.0); LYMPHOCYTES # (AUTO) 1.1 X10^3/uL (1.3-2.9); LYMPHOCYTES % (AUTO) 11.2 % (21.0-51.0); MEAN CORPUSCULAR HEMOGLOBIN 25.6 pg (27.0-34.0); MEAN CORPUSCULAR VOLUME 77.6 fL (80.0-100.0); MEAN PLATELET VOLUME 7.7 fL (7.4-11.0); MONOCYTES # (AUTO) 1.6 x10^3/uL (0.3-0.8); MONOCYTES % (AUTO) 15.8 % (0.0-13.0); NEUTROPHILS # (AUTO) 7.2 x10^3/uL (2.2-4.8); PLATELET COUNT 502 X10^3/uL (150.0-450.0); RED BLOOD COUNT 5.43 X10^6/uL (4.7-6.0); RED CELL DISTRIBUTION WIDTH 13.1 % (11.6-16.5); WHITE BLOOD COUNT 10.2 X10^3/uL (3.6-10.0)
[2022-12-25 05:43] LABS: ALANINE AMINOTRANSFERASE 17 Units/L (12-78); ALBUMIN 2.3 g/dL (3.4-5.0); ALKALINE PHOSPHATASE 129 Units/L (46-116); ASPARTATE AMINO TRANSFERASE 14 Units/L (15-37); BLOOD UREA NITROGEN 13 mg/dL (7-18); CALCIUM 8.8 mg/dL (8.5-10.1); CARBON DIOXIDE 27.9 mmol/L (21-32); CHLORIDE 96 mmol/L (98-107); COR CA(FOR HYPOALB) 10.2 mg/dL (8.5-10.1); COR NA(FOR HYPERGLY) 137 mmol/L (136-145); CREATININE 1.24 mg/dL (0.70-1.30); GLUCOSE 263 mg/dL (65-99); POTASSIUM 4.3 mmol/L (3.5-5.1); SODIUM 133 mmol/L (136-145); TOTAL PROTEIN 7.7 g/dL (6.4-8.2); eGFR NON BLACK RACES > 60 (>60)
[2022-12-25] MEDS: NS 1,000 ML IV 1,000 ML IV SCH ×3 (05:51→21:45)
[2022-12-25] MEDS: NovoLIN R (or HumuLIN R) SC PRN ×3 (06:03→18:00)
[2022-12-25] MEDS: TYLENOL 325 MG TAB PO PRN ×2 (06:52→15:00)
--- NOTE | 2022-12-25 07:19 | RAD ---
EXAM:CHEST, 1 VIEWHISTORY:PNEUMONIA F/U ;COMPARISON:12/24/2022.TECHNIQUE:AP view of the chestFINDINGS:The cardiac and mediastinal contours are normal in size. There is stable elevation of the left hemidiaphragm. Similar-appearing left mid to lower lung airspace opacity. No definite pleural effusion or pneumothorax.IMPRESSION:No significant change compared to prior radiograph. Similar-appearing left mid to lower lung airspace opacity consistent with pneumonia in the appropriate clinical setting. Recommend follow-up imaging to document resolution after appropriate treatment.THIS IS AN ELECTRONICALLY VERIFIED FINAL [id number]/25/2022 7:15 AM - Electronically signed by Presley Miller MD
[2022-12-25] MEDS: PULMICORT NEB TX 0.5 MG NEB SCH ×2 (08:16→21:15)
[2022-12-25] MEDS: XOPENEX 1.25 MG/3 ML NEBULE NEB SCH ×5 (08:16→21:15)
[2022-12-25] MEDS: LEVAQUIN PREMIX IV 750 MG 750 MG/150 ML BAG IV SCH (09:18)
[2022-12-25] MEDS: ROBITUSSIN DM PO SCH ×4 (09:19→22:00)
[2022-12-25] MEDS: VSL#3 PO SCH (09:19)
[2022-12-25] MEDS: COLACE SYRUP 100 MG UDC PO SCH ×2 (09:20→21:44)
[2022-12-25] MEDS ORDERED: ROCEPHIN VIAL 1 GRAM IM SCH (12:15)
[2022-12-25] MEDS ORDERED: XYLOCAINE 1 % (PLAIN) ONE (14:39)
[2022-12-25] MEDS: ROCEPHIN VIAL 1 GRAM 1 G in NS 100 ML IV 100 ML IV SCH (15:00)
--- NOTE | 2022-12-25 21:47 | PCM.PROG ---
Progress Note Progress Note for Day of Date of Exam: 12/25/22 Subjective Subjective: Patient is a 47-year-old male with a past medical history of hypertension, diabetes mellitis, hyperlipidemia, admitted for strep pneumoniae. This morning patient reports feeling the same. He states he feels weak. No acute events overnight. Labs/imaging: WBC 10.2, hemoglobin 13.9, platelets 502, sodium 137, potassium 4.3, creatinine 1.24, glucose 263, AIT positive for strep pneu. blood cultures NGTD. Chest XR was obtained that revealed: no change from prior. Pt is currently on antibiotics IV levaquin. Continue IV fluids normal saline at KVO mL/h, smart vest, I/S, and scheduled bronchodilators. Home medications have been resumed. Patient still not feeling well enough to go home. [facility]. They also have determined that he is not a candidate for a bronchoscopy or any other intervention at this time. Due to his clinical picture of still having tachypnea, recommended that he continue inpatient stay with IV antibiotics and recommended addition of Rocephin as well. Otherwise, will continue with current treatment plan. Continue to closely monitor and follow-up labs/imaging. Past Medical Family Social History Allergies: Allergies bacitracin [From Neosporin ([id number])] Allergy (Mild, Verified 12/20/22 00:17) RASH replaces previous free-text entry neomycin [From Neosporin ([id number])] Allergy (Mild, Verified 12/20/22 00:17) RASH replaces previous free-text entry polymyxin B [From Neosporin ([id number])] Allergy (Mild, Verified 12/20/22 00:17) RASH replaces previous free-text entry Review of Systems ROS changes noted: see HPI Vital Signs and I&O's Vital Signs: Vital Signs Temperature 98.5 F Temperature 100.1 F Pulse Rate 109 Pulse Rate 112 Pulse Rate 107 Pulse Rate 113 Pulse Rate 124 Pulse Rate 131 Respiratory Rate 23 Respiratory Rate 26 Respiratory Rate 20 Respiratory Rate 21 Respiratory Rate 21 Blood Pressure 153/83 Blood Pressure 134/88 Blood Pressure 134/88 Blood Pressure 134/88 O2 Sat by Pulse Oximetry 95 O2 Sat by Pulse Oximetry 97 O2 Sat by Pulse Oximetry 97 O2 Sat by Pulse Oximetry 96 O2 Sat by Pulse Oximetry 97 O2 Sat by Pulse Oximetry 95 Intake and Output: Intake & Output 12/22/22 12/23/22 12/24/22 12/25/22 23:59 23:59 23:59 23:59 Intake Total 2275 / 2275 2494 / 2494 1293 / 1293 788 / 788 Output Total 1850 / 1850 2850 / 2850 2700 / 2700 800 / 800 Balance 425 / 425 -356 / -356 -1407 / -1407 -12 / -12 Physical Exam Oriented: Normal Eyes: Normal Ear: Normal Nose: Normal Throat: Normal Respiratory: Left and Diminished Cardiovascular: Normal : Normal Auscultation: Bowel Sounds: Normal Tenderness: Normal Skin: Normal Musculoskeletal: Normal Psychiatric: Normal Mood Description: Calm and Appropriate Affect: Normal Speech Pattern: Clear and Appropriate Laboratory and Diagnostics 12/25/22 04:09 12/25/22 04:09 Labs: 12/19/22 23:45 Blood Blood Culture - Final 12/19/22 21:55 Blood Blood Culture - Final 12/23/22 19:55 Blood Blood Culture - Preliminary 12/20/22 13:29 Sputum - Expectorated Sputum Sputum Culture - Final 12/20/22 13:29 Sputum - Expectorated Sputum - Final Laboratory WBC 10.2 X10^3/uL (3.6-10.0) H 12/25/22 04:09 RBC 5.43 X10^6/uL (4.7-6.0) 12/25/22 04:09 Hgb 13.9 g/dL (13.5-18.0) 12/25/22 04:09 Hct 42.1 % (42.0-54.0) 12/25/22 04:09 MCV 77.6 fL (80.0-100.0) L 12/25/22 04:09 MCH 25.6 pg (27.0-34.0) L 12/25/22 04:09 MCHC 33.0 g/dL (33.0-35.0) 12/25/22 04:09 RDW 13.1 % (11.6-16.5) 12/25/22 04:09 Plt Count 502 X10^3/uL (150.0-450.0) H 12/25/22 04:09 MPV 7.7 fL (7.4-11.0) 12/25/22 04:09 Neut % (Auto) 71.0 % (42.0-75.0) 12/25/22 04:09 Lymph % (Auto) 11.2 % (21.0-51.0) L 12/25/22 04:09 [place] % (Auto) 15.8 % (0.0-13.0) H 12/25/22 04:09 Eos % (Auto) 1.2 % (0.9-2.9) 12/25/22 04:09 Baso % (Auto) 0.8 % (0.2-1.0) 12/25/22 04:09 Neut # (Auto) 7.2 x10^3/uL (2.2-4.8) H 12/25/22 04:09 Lymph # (Auto) 1.1 X10^3/uL (1.3-2.9) L 12/25/22 04:09 [place] # (Auto) 1.6 x10^3/uL (0.3-0.8) H 12/25/22 04:09 Eos # (Auto) 0.1 x10^3/uL (0.0-0.2) 12/25/22 04:09 Baso # (Auto) 0.1 X10^3/uL (0.0-0.1) 12/25/22 04:09 Absolute Nucleated RBC 0.0 /100WBC 12/25/22 04:09 D-Dimer 3.62 ug/ml (0.0-0.57) H 12/25/22 12:48 Sample Site Rr 12/19/22 23:29 ABG pH 7.500 (7.35-7.45) H 12/19/22 23:29 ABG pCO2 36.0 mmHg (35.0-45.0) 12/19/22 23:29 ABG pO2 67.0 mmHg (80.0-100.0) L 12/19/22 23:29 ABG HCO3 28.1 mmol/L (22-26) H 12/19/22 23:29 ABG O2 Saturation 95.0 % (90-100) 12/19/22 23:29 ABG Base Excess 4.8 mmol/L (-2.0-2.0) H 12/19/22 23:29 Johnathan Test Pos 12/19/22 23:29 A-a Gradient 38.0 mmHg 12/19/22 23:29 FiO2 21.0 12/19/22 23:29 Blood Gas Comments Giacomo well sw 12/19/22 23:29 Sodium 133 mmol/L (136-145) L 12/25/22 04:09 Corrected Sodium 137 mmol/L (136-145) 12/25/22 04:09 Potassium 4.3 mmol/L (3.5-5.1) 12/25/22 04:09 Chloride 96 mmol/L (98-107) L 12/25/22 04:09 Carbon Dioxide 27.9 mmol/L (21-32) 12/25/22 04:09 BUN 13 mg/dL (7-18) 12/25/22 04:09 Creatinine 1.24 mg/dL (0.70-1.30) 12/25/22 04:09 Est GFR (MDRD) Af Amer > 60 (>60) 12/25/22 04:09 Est GFR (MDRD) Non-Af > 60 (>60) 12/25/22 04:09 Glucose 263 mg/dL (65-99) H 12/25/22 04:09 POC Glucose (mg/dL) 198 mg/dL (65-99) H 12/25/22 21:02 Lactic Acid 1.6 mmol/L (0.4-2.0) 12/19/22 23:45 Calcium 8.8 mg/dL (8.5-10.1) 12/25/22 04:09 Corrected Calcium 10.2 mg/dL (8.5-10.1) H 12/25/22 04:09 Magnesium 2.0 mg/dL (2.0-2.9) 12/24/22 04:30 Total Bilirubin 0.30 mg/dL (0.2-1.0) 12/25/22 04:09 AST 14 Units/L (15-37) L 12/25/22 04:09 ALT 17 Units/L (12-78) 12/25/22 04:09 Alkaline Phosphatase 129 Units/L (46-116) H 12/25/22 04:09 Creatine Kinase 76 Units/L (39-308) 12/19/22 21:55 Troponin I High Sens 4.1 ng/L (4.0-60.0) 12/19/22 21:55 Total Protein 7.7 g/dL (6.4-8.2) 12/25/22 04:09 Albumin 2.3 g/dL (3.4-5.0) L 12/25/22 04:09 Globulin 5.4 g/dL (2.5-4.5) H 12/25/22 04:09 Albumin/Globulin Ratio 0.4 Ratio (1.1-2.1) L 12/25/22 04:09 Specimen Type Clean catch urine 12/19/22 21:55 Urine Color Yellow (YELLOW) 12/19/22 21:55 Urine Appearance Clear (CLEAR) 12/19/22 21:55 Urine pH 5.0 (5.0 - 8.0) 12/19/22 21:55 Ur Specific [place] 1.005 (1.000-1.030) 12/19/22 21:55 Urine Protein 2+ (NEGATIVE) 12/19/22 21:55 Urine Glucose (UA) 4+ (NEGATIVE) 12/19/22 21:55 Urine Ketones 3+ (NEGATIVE) 12/19/22 21:55 Urine Blood 1+ (NEGATIVE) 12/19/22 21:55 Urine Nitrite Negative (NEGATIVE) 12/19/22 21:55 Urine Bilirubin Negative (NEGATIVE) 12/19/22 21:55 Urine Urobilinogen Normal (NORMAL) 12/19/22 21:55 Ur Leukocyte Esterase Negative (NEGATIVE) 12/19/22 21:55 Urine RBC 0-2 /HPF (0-3) 12/19/22 21:55 Urine WBC None seen /HPF (0-5) 12/19/22 21:55 Ur Squamous Epith Cells Rare /HPF (NEGATIVE) 12/19/22 21:55 Urine Bacteria Negative /HPF (NEGATIVE) 12/19/22 21:55 Urine Mucus Few /HPF (NEGATIVE) 12/19/22 21:55 Ur Culture Indicated? No/not indicated 12/19/22 21:55 Acetone, Semi-Quant Small (NEGATIVE) H 12/19/22 21:55 SARS-CoV-2 (PCR) Negative (NEGATIVE) 12/19/22 21:59 Influenza Type A (PCR) Negative (NEGATIVE) 12/19/22 21:59 Influenza Type B (PCR) Negative (NEGATIVE) 12/19/22 21:59 RSV (PCR) Negative (NEGATIVE) 12/19/22 21:59 Resp Viral Panel (PCR) See scanned report 12/20/22 01:15 Plan (1) Pneumonia: Status: Acute
[2022-12-25] MEDS ORDERED: OMNIPAQUE 350 mg/mL 100 mL BTL 100 ML ONE (22:02)
--- NOTE | 2022-12-25 22:54 | CT ---
EXAM: CTA CHEST WITH INTRAVENOUS CONTRASTHISTORY: Elevated D-dimer.TECHNIQUE: Spiral axial CT images are obtained through the chest with the administration of intravenous contrast. Coronal, sagittal and 3D MIP images are reformatted.DOSIMETRY: Total DLP 202.26 mGycm; CTDI 13.43 mGyCOMPARISON: Chest CT dated December 21, 2022.FINDINGS:CARDIOVASCULAR: There is no evidence for pulmonary embolic disease. There is a stable small anterior pericardial effusion (4.7 mm thick). The heart size is within normal limits. No aortic aneurysm or dissection is seen.MEDIASTINUM AND ANETTE: There is up to 10 mm (previously 6.3 mm) circumferential thickening of the distal esophagus which may represent postinflammatory change or reflux esophagitis in the appropriate clinical setting. No mass lesion, lymphadenopathy, emphysema, or abnormal fluid collection is seen.LUNGS: There is a large, partially loculated, left posterior inferior pleural effusion, with interval increase in size compared with the previous exam. There is compressive/consolidative atelectasis of the posterior lower lobe, with air bronchograms (relatively stable). There is an approximately 5 cm AP by 2.4 cm transverse (previously 6 cm AP by 3.2 cm transverse) subpleural lung consolidation seen in the inferior lateral left upper lobe in keeping with resolving consolidative pneumonia (with significant interval improvement of the previously seen small loculated pleural effusion and air bubble seen adjacent to the infiltrate). Axial image [id number]. No new parenchymal infiltrate, endobronchial obstructing lesion, or pneumothorax is seen.CHEST WALL: There are no chest wall lesions seen. The visualized bony structures are within normal limits. No axillary lymphadenopathy is noted.UPPER ABDOMEN: Limited views through the upper abdomen demonstrate no gross acute abnormality. Dilated gallbladder; nonspecific finding which may represent sequela of NPO status; consider follow-up evaluation with ultrasound and/or HIDA scan to rule out acute gallbladder disease if clinically warranted.IMPRESSION:1. No evidence for pulmonary embolic disease.2. No evidence for aortic aneurysm or aortic dissection.3. Stable small anterior pericardial effusion (4.7 mm thick4. Up to 10 mm (previously 6.3 mm) circumferential thickening of the distal esophagus which may represent postinflammatory change or reflux esophagitis in the appropriate clinical setting.5. Large, partially loculated, left posterior inferior pleural effusion, with interval increase in size compared with the previous exam.6. Compressive/consolidative atelectasis of the posterior lower lobe, with air bronchograms (relatively stable).7. Approximately 5 cm AP by 2.4 cm transverse (previously 6 cm AP by 3.2 cm transverse) subpleural lung consolidation seen in the inferior lateral left upper lobe in keeping with resolving consolidative pneumonia (with significant interval improvement of the previously seen small loculated pleural effusion and air bubble seen adjacent to the infiltrate). Axial image [id number]. No new parenchymal infiltrate, endobronchial obstructing lesion, or pneumothorax is seen.9. Dilated gallbladder (new finding); nonspecific finding which may represent sequela of NPO status; consider follow-up evaluation with ultrasound and/or HIDA scan to rule out acute gallbladder disease if clinically warranted.THIS IS AN ELECTRONICALLY VERIFIED FINAL [id number]/25/2022 10:50 PM - Electronically signed by Remberto Elam
[2022-12-26] MEDS: NS 1,000 ML IV 1,000 ML IV SCH ×2 (04:05→12:27)
[2022-12-26 06:17] LABS: BASOPHILS % (AUTO) 0.5 % (0.2-1.0); EOSINOPHILS % (AUTO) 0.6 % (0.9-2.9); HEMATOCRIT 39.2 % (42.0-54.0); HEMOGLOBIN 12.9 g/dL (13.5-18.0); LYMPHOCYTES # (AUTO) 1.3 X10^3/uL (1.3-2.9); LYMPHOCYTES % (AUTO) 14.8 % (21.0-51.0); MEAN CORPUSCULAR HEMOGLOBIN 25.8 pg (27.0-34.0); MEAN CORPUSCULAR HGB CONC 32.9 g/dL (33.0-35.0); MEAN CORPUSCULAR VOLUME 78.2 fL (80.0-100.0); MEAN PLATELET VOLUME 7.4 fL (7.4-11.0); MONOCYTES # (AUTO) 1.5 x10^3/uL (0.3-0.8); MONOCYTES % (AUTO) 18.1 % (0.0-13.0); NEUTROPHILS # (AUTO) 5.6 x10^3/uL (2.2-4.8); PLATELET COUNT 466 X10^3/uL (150.0-450.0); RED BLOOD COUNT 5.01 X10^6/uL (4.7-6.0); RED CELL DISTRIBUTION WIDTH 13.2 % (11.6-16.5); WHITE BLOOD COUNT 8.5 X10^3/uL (3.6-10.0)
[2022-12-26 06:25] LABS: ALANINE AMINOTRANSFERASE 14 Units/L (12-78); ALBUMIN 2.1 g/dL (3.4-5.0); ALKALINE PHOSPHATASE 113 Units/L (46-116); ASPARTATE AMINO TRANSFERASE 16 Units/L (15-37); BLOOD UREA NITROGEN 13 mg/dL (7-18); CALCIUM 8.4 mg/dL (8.5-10.1); CARBON DIOXIDE 28.6 mmol/L (21-32); CHLORIDE 97 mmol/L (98-107); COR CA(FOR HYPOALB) 9.9 mg/dL (8.5-10.1); COR NA(FOR HYPERGLY) 137 mmol/L (136-145); CREATININE 1.11 mg/dL (0.70-1.30); GLUCOSE 230 mg/dL (65-99); POTASSIUM 4.2 mmol/L (3.5-5.1); SODIUM 134 mmol/L (136-145); TOTAL PROTEIN 7.1 g/dL (6.4-8.2); eGFR NON BLACK RACES > 60 (>60)
[2022-12-26] MEDS: NovoLIN R (or HumuLIN R) SC PRN (06:37)
[2022-12-26 07:47] LABS: BAND NEUTROPHILS % 3 % (0-10); BASOPHILS % (MANUAL) 0 % (0-1); PLATELET MORPHOLOGY COMMENT NORMAL (NORMAL)
[2022-12-26 07:48] LABS: HYPOCHROMASIA SLIGHT; MICROCYTOSIS SLIGHT; TEAR DROP CELLS SLIGHT
[2022-12-26] MEDS: PULMICORT NEB TX 0.5 MG NEB SCH (08:45)
[2022-12-26] MEDS: XOPENEX 1.25 MG/3 ML NEBULE NEB SCH (08:46)
[2022-12-26] MEDS: LEVAQUIN PREMIX IV 750 MG 750 MG/150 ML BAG IV SCH (09:00)
[2022-12-26 09:24] VITALS: O2SAT 96
[2022-12-26] MEDS: VSL#3 PO SCH (09:45)
[2022-12-26] MEDS: MILK OF MAGNESIA PO PRN (09:45)
[2022-12-26] MEDS: COLACE SYRUP 100 MG UDC PO SCH (09:46)
[2022-12-26] MEDS: ROBITUSSIN DM PO SCH (09:46)
--- NOTE | 2022-12-26 09:56 | RAD ---
EXAM:AP chestHISTORY:PneumoniaCOMPARISON:Novembe r 2022FINDINGS:There is increasing opacification at the left base obscuring the retrocardiac structures and medial diaphragm. Heart size is unchanged and the right lung remains clear.IMPRESSION:Increasing opacification left base consistent with progression of pneumonia/atelectasis and CT-described pleural effusion.THIS IS AN ELECTRONICALLY VERIFIED FINAL [id number]/26/2022 9:53 AM - Electronically signed by Bhavik Mayes MD
[2022-12-26] MEDS: ROCEPHIN VIAL 1 GRAM 1 G in NS 100 ML IV 100 ML IV SCH (10:00)
[2022-12-26 11:09] VITALS: TEMP 98.3
[2022-12-26 12:25] VITALS: BP 146/85; PULSE 109; RESP 22
== END 2022-12-26 12:45 | disposition home or self-care (01) | DRG 194 ==
LOC: ICU 19:42 → ER 19:42 → ICU 12-20 00:59
PROVIDERS: ADMIT Family Medicine; ATTEND Family Medicine
DX: Z20.822 Contact with and (suspected) exposure to COVID-19; R07.89 Other chest pain; R53.1 Weakness; E87.1 Hypo-osmolality and hyponatremia; J90 Pleural effusion, not elsewhere classified; B95.3 Streptococcus pneumoniae as the cause of diseases classified elsewhere; R00.0 Tachycardia, unspecified; E11.65 Type 2 diabetes mellitus with hyperglycemia; J18.8 Other pneumonia, unspecified organism; I10 Essential (primary) hypertension; R06.02 Shortness of breath; E78.2 Mixed hyperlipidemia